=== PATIENT | female | born 1965 | race Caucasian/White ===

== ENCOUNTER 2023-07-20 12:20 | Outpatient (AMB) | payer OTHER, SELFPAY ==
--- NOTE | 2023-07-20 12:34 | A.OFFVIS_ITS ---
Intake Vital Signs 07/20/23 12:35 Height 5 ft 4 in Weight 208 lb BMI 35.7 Intake Visit Reasons: [employer]-B/L knee pain/Right worse Intake Note: Tennille is a 57 year old female who presnets today as a new patient to re- establish care with Dr. briones. She has history of bilateral Arthroscopic surgeries with about 10 years ago. Patient describes her knee pains as sharp in nature. She states that both of her knees will give out several times per day. She has had both cortisone injections and viscosupplementation injections which gave her minimal relief. She has also done physical therapy exercises which aggravated her pain. She was seen by another orthopedic surgeon in [place] recommended total knee replacement surgery. She comes here today for a 2nd opinion regarding her treatment options. Allergies No Known Allergies Allergy (Verified 07/20/23 12:36) [facility] Surgical History (Updated 07/20/23 @ 12:38 by Mel Mendes CMA) H/O arthroscopy of left knee H/O arthroscopy of right knee Social History (Updated 07/20/23 @ 12:36 by Mel Mendes CMA) Patient Tobacco Use Status: Never used Tobacco Current occupational status: employed Current occupation: Home Health Aide Physical Exam Vital Signs: BMI result Body Mass Index 35.7 Const Other: Well-nourished well-developed very friendly female awake alert and oriented x3 in no acute distress Extrem Other: Bilateral lower extremity examination shows good capillary refill, no skin lesions noted, normal sensation light touch Bilateral knee examination shows minimal effusions, mild crepitus with range of motion, tenderness along her medial and lateral joint lines, positive Akila's test, no instability Results Reviewed Results Reviewed: X-rays of the patient's bilateral knee show mild grade 1 diffuse joint space narrowing, no acute bony abnormalities Assessment & Plan Assessment & Plan (1) Right knee pain: Code(s): M25.561 - Pain in right knee Plan: Ms. Burton presents with progressively worsening bilateral knee pains and mechanical symptoms, right greater than left, due to early degenerative joint disease as well as possible tearing of her medial and lateral menisci. I had a lengthy discussion with the patient regarding the treatment options. At this point she has failed continued non operative treatments. The risks and benefits of arthroscopic surgery versus total knee replacement surgery were discussed at length with the patient. Because of the patient's mechanical symptoms I do feel that she would benefit significantly from an arthroscopic procedure. She wishes to hold off on total knee replacement surgery if at all possible. I agree with this plan. Thus, we will schedule her for right knee arthroscopic surgery at our next available date. Surgery will most likely involve right knee diagnostic arthroscopy with partial medial and lateral meniscectomies. She will follow-up as instructed. Feel free to call me at any time should questions regarding her orthopedic management arise. (2) Left knee pain: Code(s): M25.562 - Pain in left knee Plan I spent 22 minutes in reviewing the patient's records and imaging studies, seeing the patient and documenting in the medical record. Orders: Orders XR knee RT 3V Today M25.562 - Pain in left knee XR knee LT 3V Today M25.561 - Pain in right knee Coding Level of Care Code New Pt Level 2 (73608) Diagnoses Right knee pain M25.561 Left knee pain M25.562
[2023-07-20 12:35] VITALS: BMI 35.7
== END 2023-07-20 12:47 | disposition home or self-care (01) ==
PROVIDERS: Visit Provider Orthopaedic Surgery
DX: M25.561 Pain in right knee (principal); M25.562 Pain in left knee
CPT/HCPCS: 99202

== ENCOUNTER 2023-07-20 12:53 | Outpatient (REF) | payer OTHER, SELFPAY ==
--- NOTE | ~2023-07-20 | XR_ITS ---
Examination: Bilateral knee series CLINICAL INFORMATION: Pain in left and right knee COMPARISON: MRI of the right knee June 2022 TECHNIQUE: 3 views of each knee FINDINGS: Right knee: Medial compartment marginal osteophytes without joint space narrowing indicative of mild osteoarthritis unchanged. Lateral compartment: Normal. Patellofemoral compartment: Marginal osteophytes without joint space narrowing indicative of mild osteoarthritis. No effusion. Left knee: Medial compartment marginal osteophytes without joint space narrowing indicative of mild osteoarthritis. Lateral compartment normal. Patellofemoral compartment marginal osteophytes without joint space narrowing indicative of mild osteoarthritis No effusion XR/XR knee RT 3V IMPRESSION: RIGHT KNEE: Mild osteoarthritis. Patellofemoral arthrosis more clearly assessed on prior MRI in 2021. MRI demonstrates mild to moderate osteoarthritis of the patellofemoral compartment LEFT KNEE: Mild osteoarthritis.
--- NOTE | ~2023-07-20 | XR_ITS ---
Examination: Bilateral knee series CLINICAL INFORMATION: Pain in left and right knee COMPARISON: MRI of the right knee June 2022 TECHNIQUE: 3 views of each knee FINDINGS: Right knee: Medial compartment marginal osteophytes without joint space narrowing indicative of mild osteoarthritis unchanged. Lateral compartment: Normal. Patellofemoral compartment: Marginal osteophytes without joint space narrowing indicative of mild osteoarthritis. No effusion. Left knee: Medial compartment marginal osteophytes without joint space narrowing indicative of mild osteoarthritis. Lateral compartment normal. Patellofemoral compartment marginal osteophytes without joint space narrowing indicative of mild osteoarthritis No effusion XR/XR knee LT 3V IMPRESSION: RIGHT KNEE: Mild osteoarthritis. Patellofemoral arthrosis more clearly assessed on prior MRI in 2021. MRI demonstrates mild to moderate osteoarthritis of the patellofemoral compartment LEFT KNEE: Mild osteoarthritis.
== END 2023-07-20 12:54 | disposition home or self-care (01) ==
LOC: HO.HOSX 12:53
PROVIDERS: Visit Provider Orthopaedic Surgery
DX: M25.561 Pain in right knee (principal); M25.562 Pain in left knee
CPT/HCPCS: 73562; 99202

== ENCOUNTER 2023-08-18 07:39 | Day surgery (SDC) | payer OTHER, SELFPAY ==
[2023-08-15 16:37] VITALS: BMI 35.7
[2023-08-16 12:18] VITALS: BMI 35.5
--- NOTE | 2023-08-17 09:53 | HO.ANESPROP2 ---
HPI - Anesthesia Eval Consult details Narrative: 58yo F for Right Knee Arthroscopy, partial medial meniscetomy, possible partial lateral meniscetomy PMFSH Active Problems Active Problems: All Active Problems (Updated 08/16/23 @ 12:17 by Saumya Shepherd RN) Right knee pain (Acute) Left knee pain (Acute) Past Medical History Medical History (Updated 08/16/23 @ 12:17 by Saumya Shepherd RN) Asthma Arthritis Low back pain GERD (gastroesophageal reflux disease) Surgical History Surgical History (Updated 08/16/23 @ 12:16 by Saumya Shepherd RN) H/O arthroscopy of left knee H/O arthroscopy of right knee Social History Social History (Updated 08/16/23 @ 12:18 by Saumya Shepherd RN) Household Members Other:: daughter 17 yr Are you a primary healthcare advisory services manager to a significant other at home: No Do you presently have visiting nurse or other home services: No Patient Tobacco Use Status: Former Tobacco user Quit Date: 1992 Tobacco use type: Cigarette Use of substances other than those prescribed or required for medical reasons: No Have you been hit, kicked, punched, or otherwise hurt by someone within the past year? 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
[2023-08-18] VITALS (7 sets, daily range): BP systolic 100–129; BP diastolic 46–69; PULSE 58–71; RESP 16; TEMP 36.1–37; O2SAT 95–99
[2023-08-18] MEDS: Lactated Ringers 1,000 ML 100 ML IVCONT (08:26)
--- NOTE | 2023-08-18 09:20 | P.CONAN_ITS ---
[facility] Active Problems Active Problems: All Active Problems (Updated 08/16/23 @ 12:17 by Saumya Shepherd RN) Right knee pain (Acute) Left knee pain (Acute) Past Medical History Medical History (Updated 08/16/23 @ 12:17 by Saumya Shepherd RN) Asthma Arthritis Low back pain GERD (gastroesophageal reflux disease) Family History Family history of problems with anesthesia: No Surgical History Surgical History (Updated 08/16/23 @ 12:16 by Saumya Shepherd RN) H/O arthroscopy of left knee H/O arthroscopy of right knee History of Problems with Anesthesia: No Social History Social History (Updated 08/16/23 @ 12:18 by Saumya Shepherd RN) Household Members Other:: daughter 17 yr Are you a primary rn progressive care unit to a significant other at home: No Do you presently have visiting nurse or other home services: No Patient Tobacco Use Status: Former Tobacco user Quit Date: 1992 Tobacco use type: Cigarette Use of substances other than those prescribed or required for medical reasons: No Have you been hit, kicked, punched, or otherwise hurt by someone within the past year? 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 Allergies Allergy/AdvReac Type Severity Reaction Status Date / Time No Known Allergies Allergy Verified 08/16/23 12:21 Active Medications: Current Medications Lactated Ringer's (Lr) 1,000 mls @ 100 mls/hr IVCONT .Q10H VISHNU Last Admin: 08/18/23 08:26 Dose: 100 mls/hr Home Medications Medication Instructions Recorded Confirmed Last Taken Type omeprazole PO PRN Gastric Reflux 08/16/23 Unknown History Exam Height,Weight and Vital Signs: Height 5 ft 4 in Weight 93.894 kg Last Vital Signs Temp 98.6 F 08/18/23 08:19 Pulse 69 08/18/23 08:19 Resp 16 08/18/23 08:19 BP 129/68 08/18/23 08:19 Pulse Ox 97 08/18/23 08:19 O2 Del Method Room Air 08/18/23 08:19 Airway Mallampati Class: II TM Dist: >3cm Neck ROM: Full Assessment and Plan Assessment Anesthesia Assessment: Anesthesia Plan Discussed and Chart Reviewed Final Anesthetic Review Family History of Problems with Anesthesia: No History of Problems with Anesthesia: No NPO: Yes ASA Class: II Final Preanesthetic Review: No Changes in Pt Med Stat, Meds/Allgs Chart Reviewed, Consent Obtained/Reviewed and Anes Risks/Benef Reviewed Patient Risk: Low Procedure Risk: Low Anesthetic Plan Anesthetic Plan: GA Disposition: Standard PACU
--- NOTE | 2023-08-18 11:04 | PM.OP ---
Brief Operative Note Date of Service: 08/18/23 Pre-op diagnosis: Right knee medial meniscus tear, right knee degenerative joint disease Post-op diagnosis: same Procedure: Right knee diagnostic arthroscopy with right knee arthroscopic partial medial meniscectomy, right knee arthroscopic chondroplasty of the undersurface of the patella, trochlear groove and medial femoral condyle Implants: none Surgeon: Red Wylie MD Anesthesia: GLMA Was an Slasher Tender Helper used for this Procedure?: No Estimated blood loss (mL): 10 Pathology: none sent Condition: stable Disposition: PACU
--- NOTE | 2023-08-18 11:05 | P.OP_ITS ---
Operative Note Operative Note Date of Service: 08/18/23 Narrative: After the patient was identified as Tennille Burton and her right knee was initialed by myself they were brought to the operating room where general anesthesia was induced by the anesthesiologist in routine fashion. The patient was given 2 g of IV Ancef for infection prophylaxis. A formal time-out was completed. The patient's right lower extremity was prepped and draped in sterile fashion. Marcaine with epinephrine was injected into the planned incision sites as well as their right knee joint. A # 11 scalpel blade was used to make an anterolateral portal 1 cm proximal to the joint line and 1 cm lateral to the patellar tendon. Blunt trocar technique was used into the suprapatellar pouch with the knee in extension. Diagnostic arthroscopy showed multiple bands of thickened plica which would be excised at the end of the procedure. There were no loose bodies or abnormalities found in either the medial or lateral gutters. There were diffuse grades 3 and 4 degenerative changes of the undersurface of the patella as well as grades 3 and 4 degenerative changes of the trochlear groove. The patient's knee was flexed to 45 degrees and a valgus force was placed upon it. The medial compartment was entered. An anteromedial portal was made 1 cm proximal to the joint line and 1 cm medial to the patellar tendon. Probing of the medial meniscus showed a radial tear of the posterior horn. A partial medial meniscectomy was performed using the arthroscopic shaver. Following the partial meniscectomy the remainder of the meniscus tissue was stable. There were diffuse grade 2 degenerative changes of the medial femoral condyle as well as diffuse grade 1 bone degenerative changes of the medial tibial plateau. The articular surface of the medial femoral condyle was made smooth using the arthroscopic shaver. The patient's knee was then placed into a neutral position. There was no injury to the anterior cruciate ligament. The patient's knee was then placed into the figure of 4 position and the lateral co mpartment was entered. There were minimal degenerative changes of the lateral femoral condyle and lateral tibial plateau. There was no evidence of lateral meniscus tearing. The patient's knee was once again brought into extension and the suprapatellar pouch was entered. The arthroscopic shaver and the ArthroCare Wand were used to excise the thickened bands of plica. The undersurface of the patella and the articular surface of the trochlear groove were made smooth using the arthroscopic shaver. The knee joint was irrigated and then drained. All arthroscopic instruments were removed. The 2 portals were closed with 3-0 nylon interrupted suture. The knee joint was injected with Marcaine. Dry sterile dressing and Garcia bandages were placed over the patient's knee. The patient was woken and expand the operating room. They were transferred to the recovery room in stable condition.
[2023-08-18] MEDS: oxyCODONE HCl Immed Release 5 MG TABLET PO (11:17)
[2023-08-18] MEDS: cefTRIAXone sodium 1 GM in 0.9 % Sodium Chloride 50 ML IV (11:19)
== END 2023-08-18 12:10 | disposition home or self-care (01) ==
PROVIDERS: Visit Provider Orthopaedic Surgery
PROC: (CPT 29870; principal; 2023-08-18 09:50)
DX: S83.241A Other tear of medial meniscus, current injury, right knee, initial encounter (principal); M67.51 Plica syndrome, right knee; M17.11 Unilateral primary osteoarthritis, right knee; X58.XXXA Exposure to other specified factors, initial encounter; Y93.9 Activity, unspecified; Y92.9 Unspecified place or not applicable; Y99.8 Other external cause status; M54.50 Low back pain, unspecified; J45.909 Unspecified asthma, uncomplicated; K21.9 Gastro-esophageal reflux disease without esophagitis; Z79.899 Other long term (current) drug therapy; Z98.890 Other specified postprocedural states; Z87.891 Personal history of nicotine dependence
CPT/HCPCS: 29881; J0171; J0690; J0696; J1100; J1170; J1885; J2250; J2405; J2704; J2795; J3010

== ENCOUNTER → 2023-08-18 07:39 | Outpatient (BNV) | payer OTHER, SELFPAY | PROVIDERS: Visit Provider Orthopaedic Surgery | DX: S83.241A Other tear of medial meniscus, current injury, right knee, initial encounter (principal) | CPT/HCPCS: 29881 ==

== ENCOUNTER 2023-08-31 14:11 | Outpatient (AMB) | payer OTHER, SELFPAY ==
--- NOTE | 2023-08-31 14:34 | A.OFFVIS_ITS ---
Intake Vital Signs 08/31/23 14:35 Height 5 ft 4 in Weight 209 lb BMI 35.9 Intake Visit Reasons: PO-Rt Knee 08/18/23 Intake Note: Tennille a 58 year old female presents today for a post operative right knee on 08/18/23 . Patient reports she is doing well, states her pain is mild with a pain level 3 out of 10. Allergies No Known Allergies Allergy (Verified 08/31/23 14:36) HPI PO-Rt Knee 08/18/23 HPI Details 58-year-old female who returns to the [facility] today for post-op right knee , 08/18/[address] Wylie. She states she has mild pain in her knee and rates the pain as 3 on the scale of 0-10. She is doing well overall and has no other concerns today. [facility] Medical History (Updated 08/31/23 @ 15:45 by Sandra Miller PA-C) Asthma Arthritis Low back pain GERD (gastroesophageal reflux disease) Surgical History H/O arthroscopy of left knee H/O arthroscopy of right knee Social History Household Members Other:: daughter 17 yr Are you a primary insurance healthcare consultant to a significant other at home: No Do you presently have visiting nurse or other home services: No Patient Tobacco Use Status: Former Tobacco user Quit Date: 1992 Tobacco use type: Cigarette Current occupational status: employed Current occupation: Home Health Aide Review of Systems Const All systems reviewed & are unremarkable except as noted in HPI and below Physical Exam Vital Signs: BMI result Body Mass Index 35.9 Const General: cooperative and no acute distress Orientation/consciousness: patient oriented x3 Resp Effort & Inspection: normal respiratory effort and able to speak in complete sentences Cardio Peripheral pulses: Peripheral pulses 2+ throughout Neuro General: patient oriented x3 Extrem Other: Right knee: Incision clean, dry and intact. No erythema or drainage. ROM is 0-95 degrees. Calf supple, nontender. NVI. Results Reviewed Results Reviewed: Brief Operative Note Date of Service: 08/18/23 Pre-op diagnosis: Right knee medial meniscus tear, right knee degenerative joint disease Post-op diagnosis: same Procedure: Right knee diagnostic arthroscopy with right knee arthroscopic partial medial meniscectomy, right knee arthroscopic chondroplasty of the undersurface of the patella, trochlear groove and medial femoral condyle Implants: none Surgeon: Red Wylie MD Assessment & Plan Assessment & Plan (1) S/P right knee arthroscopy: Code(s): Z98.890 - Other specified postprocedural states (2) Right knee pain: Code(s): M25.561 - Pain in right knee Qualifiers: Chronicity: chronic Qualified Code(s): M25.561 - Pain in right knee; G89.29 - Other chronic pain Plan Sutures removed today, steri strips applied. She was given a hanout of home exercises and she will increase activity as tolerated. She is interested in moving forward with the left knee with Dr. Wylie and booking has been made in the office today. She will see us back preoperatively. Patient Instructions: Scribed for Sandra Miller PA-C, by Ishan Curtis medical office coordinator, on 08/31/2023 at 2:30 PM EST. I, Sandra Miller PA-C, have personally reviewed and agree with the information entered by the scribe. Coding Level of Care Code Global (77986) Diagnoses S/P right knee arthroscopy Z98.890 Chronic pain of right knee M25.561; G89.29 Chronicity: chronic
[2023-08-31 14:35] VITALS: BMI 35.9
== END 2023-08-31 15:13 | disposition home or self-care (01) ==
PROVIDERS: Visit Provider Physician Assistant
DX: Z98.890 Other specified postprocedural states (principal); M25.561 Pain in right knee; G89.29 Other chronic pain
CPT/HCPCS: 99024

== ENCOUNTER → 2023-08-31 14:11 | Outpatient (BNVA) | payer OTHER, SELFPAY | PROVIDERS: Visit Provider Physician Assistant | DX: Z47.89 Encounter for other orthopedic aftercare (principal); M25.561 Pain in right knee; G89.29 Other chronic pain; Z98.890 Other specified postprocedural states | CPT/HCPCS: 99212 ==

== ENCOUNTER 2023-09-20 07:35 | Outpatient (AMB) | payer OTHER, SELFPAY ==
--- NOTE | 2023-09-20 07:41 | MHC.OFFVIS ---
Intake Intake Visit Reasons: Pre-Lt Knee Intake Note: Tennille is a 58 year old female who presents with complaints of progressively worsening left knee pain and giving way. The patient did undergo right knee arthroscopic surgery on 08/18/2023. She reports minimal discomfort in her right knee. She describes her left knee pain as sharp and severe in nature. Most of her left knee pain is along the medial and lateral aspects of her knee. She states that her left knee will give out several times per day. She has done physical therapy which aggravated her pain. She has also had multiple cortisone injections. The most recent injection gave her minimal relief. She has tried Tylenol and anti-inflammatory medicines which gave her minimal relief. Allergies No Known Allergies Allergy (Verified 08/31/23 14:36) Medication List - Last Reconciled 09/20/23 by Red Wylie MD [omeprazole PO PRN] oxycodone 5 mg PO Q6H PRN PFSH Medical History (Updated 08/31/23 @ 15:45 by Sandra Millre PA-C) Asthma Arthritis Low back pain GERD (gastroesophageal reflux disease) Surgical History H/O arthroscopy of left knee H/O arthroscopy of right knee Social History Household Members Other:: daughter 17 yr Are you a primary career services representative to a significant other at home: No Do you presently have visiting nurse or other home services: No Patient Tobacco Use Status: Former Tobacco user Quit Date: 1992 Tobacco use type: Cigarette Current occupational status: employed Current occupation: Home Health Aide Physical Exam Const Other: Well-nourished well-developed very friendly female awake alert and oriented x3 in no acute distress Lungs - clear to auscultation bilaterally with symmetric expansion Cardiovascular exam - regular rate and rhythm Abdominal exam - soft nontender nondistended Extrem Other: Bilateral lower extremity examination shows good capillary refill, no skin lesions noted, normal sensation light touch Right knee examination shows that the surgical incisions are well healed, no erythema, minimal discomfort with range of motion, minimal crepitus with range of motion Left knee examination shows a mild effusion, minimal crepitus with range of motion, tenderness along her medial and lateral joint lines, positive Akila's test Results Reviewed Results Reviewed: MRI of the patient's left knee shows mild diffuse degenerative changes as well as tearing of her medial meniscus and possible lateral meniscus tearing, no acute bony abnormalities Assessment & Plan Assessment & Plan (1) Right knee pain: Code(s): M25.561 - Pain in right knee Qualifiers: Chronicity: chronic Qualified Code(s): M25.561 - Pain in right knee; G89.29 - Other chronic pain (2) Left knee pain: Code(s): M25.562 - Pain in left knee Plan Ms. Burton is doing well after undergoing right knee arthroscopic surgery on 08/18/2023. She will home exercise program. The patient does have progressively worsening left knee pain and mechanical symptoms due to early degenerative joint disease as well as tearing of her medial meniscus and possible lateral meniscus tearing. I had a lengthy discussion with the patient regarding the treatment options. The risks and benefits of left knee arthroscopic surgery versus left total knee replacement surgery were discussed at length with the patient. The patient mechanical symptoms I do believe that she will get significant relief from the arthroscopic procedure. The patient wishes to hold off on knee replacement surgery for as long as possible. I agree with this plan. The patient wishes to proceed with the arthroscopic procedure. She was given a prescription for oxycodone for her postoperative pain. The patient will follow-up as instructed. Feel free to call me at any time should questions regarding her orthopedic management arise. I spent 22 minutes in reviewing the patient's records and imaging studies, seeing the patient and documenting in the medical record. Medications: Refilled oxycodone Partial Fill upon patient request. 5 mg PO Q6H PRN 20 tabs 0RF pain Coding Level of Care Code Est Pt Level 2 (16093) Diagnoses Chronic pain of right knee M25.561; G89.29 Chronicity: chronic Left knee pain M25.562
== END 2023-09-20 08:05 | disposition home or self-care (01) ==
PROVIDERS: Visit Provider Orthopaedic Surgery
DX: M17.0 Bilateral primary osteoarthritis of knee (principal); S83.242A Other tear of medial meniscus, current injury, left knee, initial encounter; G89.29 Other chronic pain; M25.561 Pain in right knee
CPT/HCPCS: 99024

== ENCOUNTER → 2023-09-20 07:35 | Outpatient (BNVA) | payer OTHER, SELFPAY | PROVIDERS: Visit Provider Orthopaedic Surgery | DX: M25.561 Pain in right knee (principal); M25.562 Pain in left knee; G89.29 Other chronic pain | CPT/HCPCS: 99212 ==

== ENCOUNTER 2023-10-30 06:00 | Day surgery (SDC) | payer OTHER, SELFPAY ==
[2023-10-30] VITALS (9 sets, daily range): BP systolic 114–134; BP diastolic 62–83; PULSE 61–78; RESP 16–18; TEMP 36.1–36.4; O2SAT 95–100; BMI 37.1
[2023-10-30] MEDS: Lactated Ringers 1,000 ML 100 ML IVCONT (06:44)
--- NOTE | 2023-10-30 07:10 | HO.ANESPROP2 ---
Documented by User: Ita Hou NP 10/16/23 10:33 HPI - Anesthesia Eval Consult details Narrative: 58yo F for Left Knee Arthroscopy, partial medial meniscectomy, 10/30/23 PMFSH Active Problems Active Problems: All Active Problems (Updated 08/31/23 @ 15:45 by Sandra Miller PA-C) S/P right knee arthroscopy (Acute) Right knee pain (Acute) Left knee pain (Acute) Past Medical History Medical History (Updated 08/31/23 @ 15:45 by Sandra Miller PA-C) Asthma Arthritis Low back pain GERD (gastroesophageal reflux disease) Family History Family history of problems with anesthesia: No Surgical History Surgical History H/O arthroscopy of left knee H/O arthroscopy of right knee History of Problems with Anesthesia: No Social History Social History Household Members Other:: daughter 17 yr Are you a primary post acute care nurse practitioner to a significant other at home: No Do you presently have visiting nurse or other home services: No Patient Tobacco Use Status: Former Tobacco user Quit Date: 1992 Tobacco use type: Cigarette Use of substances other than those prescribed or required for medical reasons: No Are you DNR?: No Advance Directives: No Advance Directives Information Provided: Yes Current occupational status: employed 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 Allergies Allergy/AdvReac Type Severity Reaction Status Date / Time No Known Allergies Allergy Verified 08/31/23 14:36 Active Medications: Current Medications Cefazolin Sodium/Dextrose (Ancef) 2 gm in 50 mls @ 100 mls/hr IV PREOP ONE Stop: 10/06/23 06:02 Home Medications Medication Instructions Recorded Confirmed Last Taken Type omeprazole 1 tab PO DAILY PRN Gastric Reflux 08/16/23 10/30/23 Unknown History Assessment and Plan Assessment Anesthesia Assessment: Chart Reviewed Final Anesthetic Review Family History of Problems with Anesthesia: No History of Problems with Anesthesia: No Documented by User: Milady Velasquez DO 10/30/23 07:15 [facility] Past Medical History Medical History (Updated 08/31/23 @ 15:45 by Sandra Miller PA-C) Asthma Arthritis Low back pain GERD (gastroesophageal reflux disease) Family History Family history of problems with anesthesia: No Surgical History Surgical History H/O arthroscopy of left knee H/O arthroscopy of right knee History of Problems with Anesthesia: No Social History Social History Household Members Other:: daughter 17 yr Are you a primary post acute care nurse practitioner to a significant other at home: No Do you presently have visiting nurse or other home services: No Patient Tobacco Use Status: Former Tobacco user Quit Date: 1992 Tobacco use type: Cigarette Use of substances other than those prescribed or required for medical reasons: No Are you DNR?: No Advance Directives: No Advance Directives Information Provided: Yes Current occupational status: employed 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 Allergies Allergy/AdvReac Type Severity Reaction Status Date / Time No Known Allergies Allergy Verified 08/31/23 14:36 Home Medications Medication Instructions Recorded Confirmed Last Taken Type omeprazole 1 tab PO DAILY PRN Gastric Reflux 08/16/23 10/30/23 Unknown History Exam Exam Date and Time: October 30, 2023 0710 Height,Weight and Vital Signs: Height 5 ft 4 in Weight 97.976 kg Vital Signs Temperature 97.0 F 10/30/23 06:20 Pulse Rate 72 10/30/23 06:20 Respiratory Rate 18 10/30/23 06:20 Blood Pressure 134/78 10/30/23 06:20 Pulse Oximetry 95 10/30/23 06:20 Oxygen Delivery Method Room Air 10/30/23 06:20 Temperature 97.0 F 10/30/23 06:20 Pulse Rate 72 10/30/23 06:20 Respiratory Rate 18 10/30/23 06:20 Blood Pressure 134/78 10/30/23 06:20 Pulse Oximetry 95 10/30/23 06:20 Oxygen Delivery Method Room Air 10/30/23 06:20 Airway Mallampati Class: I TM Dist: >3cm Neck ROM: Full Loose/Missing/Broken Teeth: Yes (a few missing teeth but nothing loose or broken per patient) Heart: S1S2 Lungs: CTAB Assessment and Plan Assessment Anesthesia Assessment: Anesthesia Plan Discussed and Chart Reviewed Final Anesthetic Review Family History of Problems with Anesthesia: No History of Problems with Anesthesia: No NPO: Yes ASA Class: II Final Preanesthetic Review: No Changes in Pt Med Stat, Meds/Allgs Chart Reviewed, Consent Obtained/Reviewed and Anes Risks/Benef Reviewed Patient Risk: Low Procedure Risk: Low Anesthetic Plan Anesthetic Plan: GA and Agree w/ Assess. and Plan Disposition: Standard PACU
[2023-10-30] MEDS: fentaNYL citrate/PF 100 MCG/2 ML VIAL 50 MCG IVPUSH (08:54)
[2023-10-30] MEDS: cefTRIAXone sodium 1 GM in 0.9 % Sodium Chloride 50 ML IV (08:55)
--- NOTE | 2023-10-30 09:05 | PM.OP ---
Brief Operative Note Date of Service: 10/30/23 Pre-op diagnosis: Left knee medial meniscus tear, left knee degenerative joint disease Post-op diagnosis: same Procedure: Left knee diagnostic arthroscopy with left knee arthroscopic partial medial meniscectomy, left knee arthroscopic chondroplasty of the medial femoral condyle and the undersurface of the patella Implants: None Surgeon: Red Wylie MD Anesthesia: GLMA Was an Material Reprocessing Associate used for this Procedure?: No Estimated blood loss (mL): 10 Pathology: none sent Condition: stable Disposition: PACU
--- NOTE | 2023-10-30 09:06 | P.OP_ITS ---
Operative Note Operative Note Date of Service: 10/30/23 Narrative: After the patient was identified as Tennille Burton and her left knee was initialed by myself they were brought to the operating room where general anesthesia was induced by the anesthesiologist in routine fashion. The patient was given 2 g of IV Ancef preoperatively for infection prophylaxis. The patient's left lower extremity was prepped and draped in sterile fashion. A formal time-out was completed. Marcaine was injected into the planned incision sites as well as the patient's left knee joint. A #11 scalpel blade was used to make an anterolateral portal 1 cm proximal to the joint line and 1 cm lateral to the pa tellar tendon. Blunt trocar technique was used to enter the suprapatellar pouch with the knee in extension. Diagnostic arthroscopy showed multiple bands of thickened plica which would be excised at the end of the procedure. There were no loose bodies or abnormalities found in either the medial or lateral gutters. The articular surface of the patella showed diffuse grades 1 and 2 degenerative changes. The trochlear groove articular surface showed diffuse grade 1 degenerative changes. The patient's knee was flexed to 45 degrees and a valgus force was placed upon it. The medial compartment was entered. An anteromedial portal was made 1 cm proximal to the joint line and 1 cm medial to the patellar tendon. Probing of the medial meniscus showed a radial tear of the posterior horn. A partial medial meniscectomy was performed using the arthroscopic shaver. Following the partial meniscectomy the remainder of the meniscus tissue was stable. There were diffuse grades 2 and 3 degenerative changes of the medial femoral condyle as well as grade 1 degenerative changes of the medial tibial plateau. The articular surface of the medial femoral condyle was then made smooth using the arthroscopic shaver. The articular surface of the medial tibial plateau was already smooth so no chondroplasty was indicated. The patient's knee was placed into a neutral position. There was no injury to the anterior cruciate ligament. The patient's knee was then placed in the figure of 4 position and the lateral compartment was entered. There was no evidence of lateral meniscus tearing. There were minimal degenerative changes of the lateral femoral condyle and lateral tibial plateau. The patient's knee was once again brought into extension and the suprapatellar pouch was entered. The arth roscopic shaver and the ArthroCare Wand were used to excise the thickened bands of plica. The undersurface of the patella was then made smooth using the arthroscopic shaver. The articular surface of the trochlear groove was already smooth so no chondroplasty was indicated. The knee joint was irrigated and then drained. All arthroscopic instruments were removed. The 2 portals were closed with 3-0 nylon interrupted suture. The knee joint was injected with Marcaine. Dry sterile dressing and Garcia bandages were placed over the patient's knee. The patient was awoken and extubated in the operating room. The patient was transferred to the recovery room in stable condition.
== END 2023-10-30 10:29 | disposition home or self-care (01) ==
PROVIDERS: Visit Provider Orthopaedic Surgery
PROC: (CPT 29870; principal; 2023-10-30 07:30)
DX: S83.242A Other tear of medial meniscus, current injury, left knee, initial encounter (principal); G89.29 Other chronic pain; M17.12 Unilateral primary osteoarthritis, left knee; M67.52 Plica syndrome, left knee; M23.52 Chronic instability of knee, left knee; J45.909 Unspecified asthma, uncomplicated; M54.50 Low back pain, unspecified; K21.9 Gastro-esophageal reflux disease without esophagitis; Z79.899 Other long term (current) drug therapy; Z87.891 Personal history of nicotine dependence
CPT/HCPCS: 29881; J0131; J0171; J0690; J0696; J1100; J1170; J1885; J2250; J2405; J2704; J2795; J3010

== ENCOUNTER → 2023-10-30 06:00 | Outpatient (BNV) | payer OTHER, SELFPAY | PROVIDERS: Visit Provider Orthopaedic Surgery | DX: S83.242A Other tear of medial meniscus, current injury, left knee, initial encounter (principal); M17.12 Unilateral primary osteoarthritis, left knee | CPT/HCPCS: 29881 ==

== ENCOUNTER 2023-11-16 10:00 | Outpatient (AMB) | payer OTHER, SELFPAY ==
--- NOTE | 2023-11-16 10:18 | MHC.OFFVIS ---
Intake Intake Visit Reasons: PO-Lt Knee 10/30/23 Intake Note: Tennille a 58 year old female presents today for a post operative left knee on 10/30/23 . Patient reports she is doing well, states her pain fluctuates however her pain has been tolerable. Allergies No Known Allergies Allergy (Verified 11/16/23 10:22) HPI PO-Lt Knee 10/30/23 HPI Details 58-year-old female who returns to the office today for post-op left knee , 10/30/[address] Wylie. She states she has improvement in her pain however she does c/o pain with extending her knee. She has not yet started with physical therapy for her knee. She is doing well overall and has no other concerns today. [facility] Medical History (Updated 11/16/23 @ 10:20 by Sandra Miller PA-C) Asthma Arthritis Low back pain GERD (gastroesophageal reflux disease) Surgical History H/O arthroscopy of left knee H/O arthroscopy of right knee Social History Household Members Other:: daughter 17 yr Are you a primary career law clerk to a significant other at home: No Do you presently have visiting nurse or other home services: No Patient Tobacco Use Status: Former Tobacco user Quit Date: 1992 Tobacco use type: Cigarette Current occupational status: employed Current occupation: Home Health Aide Review of Systems Const All systems reviewed & are unremarkable except as noted in HPI and below Physical Exam Extrem Other: Left knee: Incision clean, dry and intact. No erythema or joint effusion. ROM is 0-95 degrees Calf supple, nontender. NVI. Results Reviewed Results Reviewed: Brief Operative Note Date of Service: 10/30/23 Pre-op diagnosis: Left knee medial meniscus tear, left knee degenerative joint disease Post-op diagnosis: same Procedure: Left knee diagnostic arthroscopy with left knee arthroscopic partial medial meniscectomy, left knee arthroscopic chondroplasty of the medial femoral condyle and the undersurface of the patella Implants: None Surgeon: Red Wylie MD Assessment & Plan Assessment & Plan (1) Osteoarthritis of left knee: Code(s): M17.12 - Unilateral primary osteoarthritis, left knee (2) Acute meniscal tear of left knee: Code(s): S83.207A - Unspecified tear of unspecified meniscus, current injury, left knee, initial encounter Plan Sutures removed today, steri strips applied. She will begin a course of physical therapy to work on ROM, quad strengthening and gait training. She will avoid deep squatting, pivoting, or twisting for the next 6 weeks and see me back in [address] Wylie, sooner if needed. Orders: Orders PT Evaluation and Treatment Today M17.12 - Unilateral primary osteoarthritis, left knee, S83.207A - Unspecified tear of unspecified meniscus, current injury, left knee, initial encounter Patient Instructions: Scribed for Sandra Miller PA-C, by Ishan Curtis medical authorization specialist, on 11/16/2023 at 10:15 AM EST. I, Sandra Miller PA-C, have personally reviewed and agree with the information entered by the scribe. Coding Level of Care Code Global (47878) Diagnoses Osteoarthritis of left knee M17.12 Acute meniscal tear of left knee S83.207A
== END 2023-11-16 10:24 | disposition home or self-care (01) ==
PROVIDERS: Visit Provider Physician Assistant
DX: M17.12 Unilateral primary osteoarthritis, left knee (principal); S83.207A Unspecified tear of unspecified meniscus, current injury, left knee, initial encounter
CPT/HCPCS: 99024

== ENCOUNTER → 2023-11-16 10:00 | Outpatient (BNVA) | payer OTHER, SELFPAY | PROVIDERS: Visit Provider Physician Assistant | DX: Z47.89 Encounter for other orthopedic aftercare (principal); S83.207D Unspecified tear of unspecified meniscus, current injury, left knee, subsequent encounter; M17.12 Unilateral primary osteoarthritis, left knee | CPT/HCPCS: 99212 ==

== ENCOUNTER 2023-12-14 11:38 | Outpatient (AMB) | payer OTHER, SELFPAY ==
--- NOTE | 2023-12-14 11:46 | A.OFFVIS_ITS ---
Vital Signs 12/14/23 11:49 Height 5 ft 4 in Weight 210 lb BMI 36.0 Intake Visit Reasons: PO-Lt Knee 10/30/23 DR-follow up Intake Note: Tennille is a 58 year old female who presents for her post operative appointment s/p left knee on 10/30/23 DR. Patient reports she is doing ok, she states she doesn't have a lot of strength. She is doing physical therapy and it is going well. The patient also underwent right knee arthroscopic surgery on 08/18/2023. She denies any fevers or chills. She has not yet returned to work. Allergies No Known Allergies Allergy (Verified 12/14/23 11:50) Medication List - Last Reconciled 12/14/23 by Red Wylie MD [omeprazole 1 tab PO DAILY PRN] [facility] Medical History (Updated 11/16/23 @ 10:20 by Sandra Miller PA-C) Asthma Arthritis Low back pain GERD (gastroesophageal reflux disease) Surgical History H/O arthroscopy of left knee H/O arthroscopy of right knee Social History Household Members Other:: daughter 17 yr Are you a primary child care center administrator to a significant other at home: No Do you presently have visiting nurse or other home services: No Patient Tobacco Use Status: Former Tobacco user Quit Date: 1992 Tobacco use type: Cigarette Current occupational status: employed Current occupation: Home Health Aide Physical Exam Vital Signs: BMI result Body Mass Index 36.0 Const Other: Well-nourished well-developed very friendly female awake alert and oriented x3 in no acute distress Extrem Other: Left knee examination shows that the surgical incisions are well healed, no erythema, mild crepitus with range of motion, minimal discomfort with range of motion, no instability Assessment & Plan Assessment & Plan (1) Left knee pain: Code(s): M25.562 - Pain in left knee Category: Medical Plan Ms. Burton continues to do well after undergoing left knee arthroscopic surgery on 10/30/2023 as well as right knee arthroscopic surgery on 08/18/2023. She will continue going to formal physical therapy for now. She will gradually transition to a home exercise program. I will clear her to return to work once her symptoms have improved. She will contact me prior to her follow-up appointment in 2 months should any questions or concerns arise. Coding Level of Care Code Global (34114) Diagnoses Left knee pain M25.562
[2023-12-14 11:49] VITALS: BMI 36.0
== END 2023-12-14 12:05 | disposition home or self-care (01) ==
PROVIDERS: Visit Provider Orthopaedic Surgery
DX: M25.562 Pain in left knee (principal)
CPT/HCPCS: 99024

== ENCOUNTER → 2023-12-14 11:38 | Outpatient (BNVA) | payer OTHER, SELFPAY | PROVIDERS: Visit Provider Orthopaedic Surgery | DX: Z47.89 Encounter for other orthopedic aftercare (principal); M25.562 Pain in left knee; Z98.890 Other specified postprocedural states | CPT/HCPCS: 99212 ==

== ENCOUNTER 2023-12-27 07:00 | Outpatient (RCR) | payer OTHER, SELFPAY ==
--- NOTE | 2023-11-23 12:56 | MHC.PT.EP ---
[facility] [place] Office [place] Office [place] Office [address] Anup Carrillo [address] [phone] F: [phone] F: [phone] F: [phone] F: [phone] Physical Therapy Plan of Care Date of Evaluation: 11/23/23 Date of Surgery: 10/30/23 Diagnosis: S/P Lt KNEE diagnostic arthroscopy with left knee arthroscopic partial medial meniscectomy, left knee arthroscopic chondroplasty of the medial femoral condyle and the undersurface of the patella (DR OSBORNE)->ROM, quad strengthening and gait training Assessment: 58 YO FEMALE REF TO PT S/P Lt KNEE diagnostic arthroscopy with left knee arthroscopic partial medial meniscectomy, left knee arthroscopic chondroplasty of the medial femoral condyle and the undersurface of the patella ON 10/30/23. SHE PRESENTS W/O ASST DEVICES AND A H/O Rt KNEE IN AUG 2023. SHE WORKS FULL-TIME A SENIOR ADVISOR, SHE IS OOW UNTIL JANUARY 05, 2024. OBJECTIVE FINDINGS: TERMINAL KNEE EXT DEFICITS BILATERALLY, DECR LEs STRENGTH/ LUMBOPELVIC STAB, SLS 2 SEC Lt LE, (+) PATELLAR LATERAL DRIFT Lt > Rt KNEE, TIGHT HIP MM, AND Lt ANETEROMED/LAT KNEE / PATELLAR PAIN. SHE HAS DECR LEX TO ALL FUNCT MOB, COMPENSATES W HER UEs.. SHE IS TO AVOID SQUATTING, PIVOTING, LIFTING.. SHE IS MOTIVATED FOR PT TO GUIDE HER IN HER POST-OP COURSE. Frequency and Duration: The patient will be seen 2 x WK x 5 WKS Short Term Goals: *DECR Lt KNEE PAIN AND SWELLING *REDUCE Lt LATERAL PATELLAR TISSUE RESTRICTION *INCR Lt KNEE EXT> FLEX *IMPROVE GAIT MECH AND GRAD INCR LEs USE W SIT <-> STAND *INCR LUMBOPELVIC STAB INITIATE HEP Associate Material Handler Goals: *INDEP HEP AND SELF SX MGMT TECHN *Pt GRAD RESUME REG ADLs , RTW-> IMPROVE LEFI (AT EVAL 54/80) *Pt DEMON EFFICIENT GAIT ON LEVEL GROUND AND STAIRS *WFL STRENGTH Lt LE/ LUMBOPELVIC *SLS Lt LE x 10 SEC Treatment Plan: Modalities to reduce pain, spasms and effusion. Manual therapy to restore motion and function. Therapeutic exercise to improve strength and flexibility. Neuromuscular re-education for posture and balance. Therapeutic activities to return to functional activities of daily living. Electronically signed by: ROGER MCCARTHYPT Please sign and return to therapist. Thank you for your referral.
--- NOTE | 2023-12-27 08:06 | MHC.PT.DC ---
[facility] [place] Office [place] Office [place] Office [address] Anup Carrillo [address] [phone] F: [phone] F: [phone] F: [phone] F: [phone] Physical Therapy Discharge Report Diagnosis: S/P Lt KNEE diagnostic arthroscopy with left knee arthroscopic partial medial meniscectomy, left knee arthroscopic chondroplasty of the medial femoral condyle and the undersurface of the patella (DR OSBORNE)->ROM, quad strengthening and gait training Date of Surgery: 10/30/23 Date of Evaluation: 11/23/23 Date of Discharge: 12/27/23 Treatments to Date: 10 Cancellations to Date: 1 No Shows to Date: 0 Discharge Status: Achieved Goals Improved Function Independent with HEP Discharge Summary: ADEN MET HER PT GOALS AT THIS TIME - HER LEFT KNEE PAIN IS RATED 0/10 . SHE IS INDEP AND COMPLIANT W HEP, DEMON WFL AROM (Lt KNEE 0* TO 135*), WFL FLEXIB, AND INCR STRENGHT IN HER Lt LE. SHE DEMON MORE EFFICIENT GAIT ON LEVEL AND STAIRS AND IS IMPROVING W HER SLS AND SQUAT MECH. WE HAVE ENCOURAGED HER TO INCREASE HER FITNESS WALKING. Electronically signed by: ROGER MCCARTHY,PT Please sign and return to therapist. Thank you for your referral.
== END 2023-12-27 08:06 | disposition home or self-care (01) ==
LOC: HO.PT 07:00
PROVIDERS: Visit Provider Physician Assistant
DX: M17.12 Unilateral primary osteoarthritis, left knee (principal); S83.207D Unspecified tear of unspecified meniscus, current injury, left knee, subsequent encounter
CPT/HCPCS: 97110; 97112; 97162; 97530

== ENCOUNTER 2024-02-15 10:38 | Outpatient (AMB) | payer OTHER, SELFPAY ==
--- NOTE | 2024-02-15 10:44 | A.OFFVIS_ITS ---
Intake Visit Reasons: PO-Lt Knee 10/30/23 DR-follow up Intake Note: Tennille is a 58 year old female who presents to the office today for her follow up Lt Knee 10/30/23 DR. Pt states she is feeling well. She states she has good days and bad days. She states she gets stiffness in her knee after sitting for a longer period of time. Pt states her ROM is better than before. Pt states she has completed P.T. Allergies No Known Allergies Allergy (Verified 02/15/24 10:44) Medication List - Last Reconciled 02/15/24 by Red Wylie MD [omeprazole 1 tab PO DAILY PRN] [facility] Medical History (Updated 11/16/23 @ 10:20 by Sandra Miller PA-C) Asthma Arthritis Low back pain GERD (gastroesophageal reflux disease) Surgical History H/O arthroscopy of left knee H/O arthroscopy of right knee Social History Household Members Other:: daughter 17 yr Are you a primary customer care specialist to a significant other at home: No Do you presently have visiting nurse or other home services: No Patient Tobacco Use Status: Former Tobacco user Tobacco use type: Cigarette Current occupational status: 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 Burton continues to do well after undergoing left knee arthroscopic surgery on 10/30/2023 as well as right knee arthroscopic surgery on 08/18/2023. She will continue activities as tolerated. She will contact me prior to her follow-up appointment in 3 months should any questions or concerns arise. I spent 22 minutes in reviewing the patient's records and imaging studies, seeing the patient and documenting in the medical record. Coding Level of Care Code Est Pt Level 3 (86398) Diagnoses Left knee pain M25.562
== END 2024-02-15 11:10 | disposition home or self-care (01) ==
PROVIDERS: Visit Provider Orthopaedic Surgery
DX: M25.562 Pain in left knee (principal)
CPT/HCPCS: 99213

== ENCOUNTER → 2024-02-15 10:38 | Outpatient (BNVA) | payer OTHER, SELFPAY | PROVIDERS: Visit Provider Orthopaedic Surgery | DX: M25.562 Pain in left knee (principal) | CPT/HCPCS: 99212 ==

== ENCOUNTER 2024-05-16 11:15 | Outpatient (AMB) | payer OTHER, SELFPAY ==
--- NOTE | 2024-05-16 11:20 | A.OFFVIS_ITS ---
Intake Visit Reasons: Bilateral knee pain Intake Note: Tennille is a 58 year old female who presents with complaints of mild intermittent discomfort in both of her knees after undergoing right knee arthroscopic surgery on 08/18/2023 as well as left knee arthroscopic surgery on 10/30/2023. She denies any fevers or chills. She continues with her home exercise program. She denies any locking or giving way. Most of her right knee discomfort is along the anterior aspect of her knee while most of her left knee discomfort is along the medial aspect of her knee. Allergies No Known Allergies Allergy (Verified 05/16/24 11:25) Medication List - Last Reconciled 05/16/24 by Red Wylie MD [omeprazole 1 tab PO DAILY PRN] ON LICENSE OF [facility] Medical History (Updated 11/16/23 @ 10:20 by Sandra Miller PA-C) Asthma Arthritis Low back pain GERD (gastroesophageal reflux disease) Surgical History H/O arthroscopy of left knee H/O arthroscopy of right knee Social History Household Members Other:: daughter 17 yr Are you a primary career and transition teacher to a significant other at home: No Do you presently have visiting nurse or other home services: No Patient Tobacco Use Status: Former Tobacco user Tobacco use type: Cigarette Current occupational status: employed 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 Burton continues to do well after undergoing bilateral knee arthroscopic surgeries. She does have residual discomfort in both of her knees due to degenerative joint disease. I had a lengthy discussion with the patient regarding the treatment options. At this point the patient's symptoms are tolerable to her. She will continue with her activity modifications. She will contact me prior to her follow-up appointment in 3 months should any questions or concerns arise. Feel free to call me at any time should questions regarding her orthopedic management arise. I spent 22 minutes in reviewing the patient's records and imaging studies, seeing the patient and documenting in the medical record. Coding Level of Care Code Est Pt Level 3 (41168) Complex EM visit Add On G2211 Diagnoses Pain in both knees M25.561; M25.562
== END 2024-05-16 11:54 | disposition home or self-care (01) ==
PROVIDERS: Visit Provider Orthopaedic Surgery
DX: M17.0 Bilateral primary osteoarthritis of knee (principal)
CPT/HCPCS: 99213; G2211

== ENCOUNTER → 2024-05-16 11:15 | Outpatient (BNVA) | payer OTHER, SELFPAY | PROVIDERS: Visit Provider Orthopaedic Surgery | DX: M25.561 Pain in right knee (principal); M25.562 Pain in left knee | CPT/HCPCS: 99212 ==

== ENCOUNTER 2024-08-21 11:40 | Outpatient (AMB) | payer OTHER, SELFPAY ==
--- NOTE | 2024-08-21 11:43 | A.OFFVIS_ITS ---
Vital Signs 08/21/24 11:47 Height 5 ft 4 in Weight 210 lb BMI 36.0 Intake Visit Reasons: Bilateral knee pains Intake Note: Tennille is a 59 year old female who presents with complaints of progressively worsening bilateral knee pains. She describes her pains as sharp in nature. She has undergone bilateral knee arthroscopic surgeries in the past. She got only temporary relief from those procedures. She has had cortisone injections in both of her knees as well. The most recent set of cortisone injections gave her minimal relief. She has also had Euflexxa viscosupplementation injections which gave her fairly good relief. She has done physical therapy exercises which aggravated her pain. She has failed the last 3 months of conservative treatment which has consisted of physical therapy exercises, Tylenol and anti- inflammatory medicines. She states that her knee pains are interfering with her activities of daily living and her ability to sleep well through the night. She wishes to hold off on total knee replacement surgery for as long as possible. Allergies No Known Allergies Allergy (Verified 08/21/24 11:47) [facility] Medical History (Updated 08/21/24 @ 12:14 by Red Wylie MD) Asthma Arthritis Low back pain GERD (gastroesophageal reflux disease) Surgical History H/O arthroscopy of left knee H/O arthroscopy of right knee Social History Household Members Other:: daughter 17 yr Are you a primary resident caregiver to a significant other at home: No Do you presently have visiting nurse or other home services: No Patient Tobacco Use Status: Former Tobacco user Tobacco use type: Cigarette Current occupational status: employed Current occupation: Home Health Aide Physical Exam Vital Signs: BMI result Body Mass Index 36.0 Const Other: Well-nourished well-developed very friendly female awake alert and oriented x3 in no acute distress Extrem Other: Bilateral lower extremity examination shows good capillary refill, no skin lesions noted, normal sensation light touch Bilateral knee examination shows minimal effusions, palpable crepitus with range of motion, pain with range of motion, no instability Results Reviewed Results Reviewed: X-rays of the patient's bilateral knees taken previously show joint space narrowing, subchondral sclerosis, no acute bony abnormalities Assessment & Plan Assessment & Plan (1) Osteoarthritis of left knee: Code(s): M17.12 - Unilateral primary osteoarthritis, left knee Category: Medical (2) Osteoarthritis of right knee: Code(s): M17.11 - Unilateral primary osteoarthritis, right knee Category: Medical Plan Ms. Burton presents with bilateral knee pains due to osteoarthritis. I had a lengthy discussion with the patient regarding the treatment options. She wishes to hold off on total knee replacement surgery for as long as possible. I agree with this plan. She has not gotten good relief from cortisone injections in the past. Thus, I will see whether or not her insurance company will cover a series of 3 Euflexxa viscosupplementation injections for both of her knees. I will see her back once the injections are available. She will contact me prior to that time should any questions or concerns arise. I spent 22 minutes in reviewing the patient's records and imaging studies, seeing the patient and documenting in the medical record. Coding Level of Care Code Est Pt Level 3 (19847) Complex EM visit Add On G2211 Diagnoses Osteoarthritis of left knee M17.12 Osteoarthritis of right knee M17.11
[2024-08-21 11:47] VITALS: BMI 36.0
== END 2024-08-21 11:59 | disposition home or self-care (01) ==
PROVIDERS: Visit Provider Orthopaedic Surgery
DX: M17.0 Bilateral primary osteoarthritis of knee (principal)
CPT/HCPCS: 99213; G2211

== ENCOUNTER → 2024-08-21 11:40 | Outpatient (BNVA) | payer OTHER, SELFPAY | PROVIDERS: Visit Provider Orthopaedic Surgery | DX: M17.0 Bilateral primary osteoarthritis of knee (principal) | CPT/HCPCS: 99212 ==

== ENCOUNTER 2024-08-29 09:40 | Outpatient (AMB) | payer OTHER, SELFPAY ==
[2024-08-29 09:43] VITALS: BMI 36.0
--- NOTE | 2024-08-29 09:43 | A.OFFVIS_ITS ---
Vital Signs 08/29/24 09:43 Height 5 ft 4 in Weight 210 lb BMI 36.0 Intake Visit Reasons: Bilateral knee pains Intake Note: Tennille is a 59 year old female who presents with complaints of progressively worsening bilateral knee pains. She describes her pains as sharp in nature. She has had cortisone injections in the past which gave her minimal relief. She wishes to hold off on surgery for as long as possible. She has tried Tylenol and anti-inflammatory medicines which gave her only mild relief. At this point her bilateral knee pains are interfering with her activities of daily living and her ability to sleep well through the night. Allergies No Known Allergies Allergy (Verified 08/29/24 09:43) [facility] Medical History (Updated 08/21/24 @ 12:14 by Red Wylie MD) Asthma Arthritis Low back pain GERD (gastroesophageal reflux disease) Surgical History H/O arthroscopy of left knee H/O arthroscopy of right knee Social History Household Members Other:: daughter 17 yr Are you a primary primary care physician to a significant other at home: No Do you presently have visiting nurse or other home services: No Patient Tobacco Use Status: Former Tobacco user Tobacco use type: Cigarette Current occupational status: employed Current occupation: Home Health Aide Physical Exam Vital Signs: BMI result Body Mass Index 36.0 Const Other: Well-nourished well-developed very friendly female awake alert and oriented x3 in no acute distress Extrem Other: Bilateral lower extremity examination shows good capillary refill, no skin lesions noted, normal sensation light touch Bilateral knee examination shows minimal effusions, palpable crepitus with range motion, pain with range of motion, no instability Office Procedures AMB Joint Injection/Aspiration Joint Injection/Aspiration Primary Site: left knee Prep: site was prepped using aseptic technique Injected: 20 mg of (Euflexxa viscosupplementation) and 1% plain lidocaine Procedure: The patient tolerated the procedure well Coding 13345 - Large joint Procedure code (CPT) selection complete AMB Joint Injection/Aspiration Joint Injection/Aspiration Primary Site: right knee Prep: site was prepped using aseptic technique Injected: 20 mg of (Euflexxa viscosupplementation) and 1% plain lidocaine Procedure: The patient tolerated the procedure well Coding 08542 - Large joint Procedure code (CPT) selection complete Results Reviewed Results Reviewed: X-rays of the patient's bilateral knees taken previously show joint space narrowing, subchondral sclerosis, no acute bony abnormalities Assessment & Plan Assessment & Plan (1) Osteoarthritis of left knee: Code(s): M17.12 - Unilateral primary osteoarthritis, left knee Category: Medical (2) Osteoarthritis of right knee: Code(s): M17.11 - Unilateral primary osteoarthritis, right knee Category: Medical Plan Ms. Burton presents with bilateral knee pains due to osteoarthritis. The risks and benefits of bilateral knee Euflexxa viscosupplementation injections were discussed at length with the patient. The patient wished to proceed. She tolerated the 1st set of injections well. She will continue with her home exercise program. She will follow up next week as scheduled. Feel free to call me at any time should questions regarding her orthopedic management arise. I spent 20 minutes in reviewing the patient's records and imaging studies, seeing the patient and documenting in the medical record. Orders: Orders AMB Joint Injection/Aspiration Today M17.12 - Unilateral primary osteoarthritis, left knee AMB Joint Injection/Aspiration Today M17.11 - Unilateral primary osteoarthritis, right knee Coding Level of Care Code Est Pt Level 3 (44569) Complex EM visit Add On G2211 Diagnoses Osteoarthritis of left knee M17.12 Osteoarthritis of right knee M17.11 CPT Codes Coding - 82347 Large joint: 63781 - Large joint ([id number]) Coding - 07317 Large joint: 31609 - Large joint ([id number])
== END 2024-08-29 10:21 | disposition home or self-care (01) ==
PROVIDERS: Visit Provider Orthopaedic Surgery
DX: M17.0 Bilateral primary osteoarthritis of knee (principal)
CPT/HCPCS: 20610; 99213

== ENCOUNTER → 2024-08-29 09:40 | Outpatient (BNVA) | payer OTHER, SELFPAY | PROVIDERS: Visit Provider Orthopaedic Surgery | DX: M17.0 Bilateral primary osteoarthritis of knee (principal) | CPT/HCPCS: 20610; 99212; J2003; J7323 ==

== ENCOUNTER 2024-09-04 09:27 | Outpatient (AMB) | payer OTHER, SELFPAY ==
--- NOTE | 2024-09-04 09:29 | MHC.OFFVIS ---
Vital Signs 09/04/24 09:31 Height 5 ft 4 in Weight 210 lb BMI 36.0 Intake Visit Reasons: Inj- Bilateral Knee Euflexxa #2 Intake Note: Tennille is a 59 year old female who presents today for her second dose of bilateral knee Euflexxa gel injection. She states that she has gotten mild relief from the 1st set of injections. She continues with her home exercise program. Allergies No Known Allergies Allergy (Verified 09/04/24 09:31) Medication List - Last Reconciled 09/04/24 by Red Wylie MD No Known Home Meds [facility] Medical History (Updated 08/21/24 @ 12:14 by Red Wylie MD) Asthma Arthritis Low back pain GERD (gastroesophageal reflux disease) Surgical History H/O arthroscopy of left knee H/O arthroscopy of right knee Social History Household Members Other:: daughter 17 yr Are you a primary furnace caretaker to a significant other at home: No Do you presently have visiting nurse or other home services: No Patient Tobacco Use Status: Former Tobacco user Tobacco use type: Cigarette Current occupational status: employed Current occupation: Home Health Aide Physical Exam Vital Signs: BMI result Body Mass Index 36.0 Extrem Other: Bilateral knee examination shows minimal effusions, palpable crepitus range of motion, pain with range of motion, no instability Office Procedures AMB Joint Injection/Aspiration Joint Injection/Aspiration Primary Site: right knee Prep: site was prepped using aseptic technique Injected: 20 mg of (Euflexxa viscosupplementation) and 1% plain lidocaine Procedure: The patient tolerated the procedure well Coding 51840 - Large joint Procedure code (CPT) selection complete AMB Joint Injection/Aspiration Joint Injection/Aspiration Primary Site: left knee Prep: site was prepped using aseptic technique Injected: 20 mg of (Euflexxa viscosupplementation) and 1% plain lidocaine Procedure: The patient tolerated the procedure well Coding 38492 - Large joint Procedure code (CPT) selection complete Results Reviewed Results Reviewed: X-rays of the patient's bilateral knees taken previously show joint space narrowing, subchondral sclerosis, no acute bony abnormalities Assessment & Plan Assessment & Plan (1) Osteoarthritis of left knee: Code(s): M17.12 - Unilateral primary osteoarthritis, left knee Category: Medical (2) Osteoarthritis of right knee: Code(s): M17.11 - Unilateral primary osteoarthritis, right knee Category: Medical Plan Ms. Burton presents with bilateral knee pains due to osteoarthritis. The risks and benefits of a 2nd set of Euflexxa viscosupplementation injections were discussed at length with the patient. The patient wishes to proceed. She tolerated the injections well. She will continue with her home exercise program. She will follow up next week as scheduled. Feel free to call me at any time should questions regarding her orthopedic management arise. Orders: Orders AMB Joint Injection/Aspiration 09/04/24 M17.12 - Unilateral primary osteoarthritis, left knee AMB Joint Injection/Aspiration 09/04/24 M17.11 - Unilateral primary osteoarthritis, right knee Coding Level of Care Code Procedure Only Diagnoses Osteoarthritis of left knee M17.12 Osteoarthritis of right knee M17.11 CPT Codes Coding - 57250 Large joint: 12729 - Large joint ([id number]) Coding - 01055 Large joint: 22652 - Large joint ([id number])
[2024-09-04 09:31] VITALS: BMI 36.0
--- OUTSIDE RECORDS SUMMARY | 2024-09-04 10:57 | XMS_ITS | Encounter Summary ---
Author Organization [facility] Address [address] [place] [address] Care Team Providers Care Mud Engineer Name Role Phone Millie Castellano MD Primary Care Provider Reason for Visit * Reason Onset Date Comments Wheezing 08/12/2024 Encounter Details Date Type Department Care Team ([facility] st Contact Info) Description 08/12/2024 Telephone Adult Medicine [facility] [address] [place] [phone] Millie Castellano MD [address] [place] [address] Wheezing Social History Tobacco Use Types Packs/Day Years Used Date Smoking Tobacco: Former Cigarettes Q uit: 04/12/1993 Smokeless Tobacco: Never Alcohol Use Standard Drinks/Week Comments Yes 0 (1 standard drink = 0.6 oz pur e alcohol) Sex and Gender Information Value Date Recorded Sex Assigned at Not on file Gender Identity Not on file Sexual Orientation Not on file documented as of this encounter Progress Notes * Raciel Mendez RN - 08/12/2024 1:55 PM EST Pt states that she is having a flair up of her asthma and is wheezing , appointment scheduled * Cheryl Barrettap - 08/12/2024 1:51 PM EST Patient call requires triage: Symptoms patient is presenting: wheezing pt has asthma How long has patient had these symptoms?: New years rosa For ALL patients calling to schedule any appointment (routine, sick visit, follow up, consult, etc.) in the outpatient setting please ask the following questions: Do you have fever of higher than 101, sore throat with difficulty swallowing or severe shortness ofbreath? no If YES to any of these above symptoms, send a message to triage and do not book. Red dot. If no, an audio or video visit should be booked. Have you had close contact with someone with Coronavirus in the last 14 days? no Have you traveled abroad? no Have you traveled recently to another state outside of [place], [place], [place], [place], [place], [place], [place]? no o If yes, did you quarantine for 14 days or have a negative covid test? no If yes to any of the above, patient is not to be scheduled in office until after 14 day quarantine or negative covid test. If pain or injury related was it due to an accident at work or from a motor vehicle accident? If yes, date of accident/Injury: No If yes, gather 3rd alliance party insurance information Third Green Party Information: PCP: iMllie Castellano MD Payor: [facility] [employer] / Plan: [facility] [employer] DIRECT / Product Type: *No Product type* / documented in this encounter Plan of Treatment Upcoming Encounters Date Type Department Care Team (Late st Contact Info) Description 10/18/2024 12:30 PM EDT Office Visit Adult Medicine - [place] [address] [place] [address] Manolo Schilling PA [address] [place] [address] documented as of this encounter Visit Diagnoses Not on filedocumented in this encounter Additional Health Concerns Assessment Noted Time PHQ-9 Depression Total Score: 0 07/16/20 24 1:32 PM EST documented as of this encounter Care Teams Mud Engineer Relationship Specialty Start Date End Date Millie Castellano MD [address] [address] PCP - General Internal Medicine 11/25/21 documented as of this encounter
--- OUTSIDE RECORDS SUMMARY | 2024-09-04 10:57 | XMS_ITS | Clinical Summary ---
Author Organization [facility] [address] [facility] Address [address] [place] [address] Phone Care Team Providers Care Tech Brazer Tester Name Role Phone Millie Castellano MD Primary Care Provider Allergies No known active allergies Medications Medication Sig Dispensed Refills Start Date End Date Status albuterol HFA (PROAIR HFA ; PROVENTIL HFA ; VENTOLIN HFA) 90 mcg/actuation inhaler Inhale 2 puffs by mouth every 6 (six) hours if needed for wheezing. 6.7 g 2 08/12/2024 Active albuterol HFA (PROAIR HFA ; PROVENTIL HFA ; VENTOLIN HFA) 90 mcg/actuation inhaler Inhale 2 Puffs into the lungs every 4 hours as needed for Cough or Wheezing. 03/25/2021 08/12/2024 Discontinued( Therapy completed) Active Problems Problem Noted Date Diagnosed Date Shingles 12/09/2022 GERD (gastroesophageal reflux disease) Moderate persistent asthma 05/23/2018 Obesity (BMI 30.0-34.9) 04/12/2018 Pure hypercholesterolemia 01/20/2014 Encounters Date Type Department Care Team Description 08/12/2024 2:45 PM EST Office Visit Adult Medicine [facility] [address] [place] [address] Millie Castellano MD Mild intermittent asthma without complication (Primary Dx) 08/12/2024 Telephone Adult [facility] [address] [place] [address] Millie Castellano MD Wheezing 07/16/2024 1:30 PM EST Office Visit Adult Medicine [address] [phone] Manolo Schilling PA Routine general medical examination at a health care facility (Primary Dx); Class 2 obesity without serious comorbidity with body mass index (BMI) of 36.0 to 36.9 in adult, unspecified obesity type; Need for Tdap vaccination from Last 3 Months Immunizations Name Administration Dates Next Due Influenza trivalent, MDCK, 0 .5mL, preservative free (Flucelvax) 6mo and older 07/16/2024 [employer] SARS-CoV-2 COVID -19, vector-nr, rS-Ad26, preservative free 12/03/2020 Pneumococcal conjugate 13 va lent (Prevnar 13, PCV13) 2mo and older 03/25/2021 Tdap Tetanus diptheria acell ular pertussis (Boostrix; Adacel) 7yo and older 07/16/2024,01/20/2014 Surgical History Surgery Date Site/Laterality Comments KNEE SURGERY 2013 Bilateral PROCEDURE: HISTORICAL KNEE SURGERY; COMMENT: Arthroscopy Medical History Medical History Date Comments Pure hypercholesterolemia 01/20/2014 DX:Pur e hypercholesterolemia GERD (gastroesophageal reflux disease) 05/06/2021 DX:GERD (gastroesophageal reflux disease) Family History Medical History Relation Name Comments No Known Problems Brother 1 No Known Problems Brother 2 No Known Problems Daughter 1 No Known Problems Daughter 2 No Known Problems Daughter 3 Mental illness Father alzheimers Hypertension Mother Thyroid disease Mother Hypertension Sister 1 Hypertension Sister 2 Breast cancer Neg Hx Relation Name Status Comments Brother 1 Alive Brother 2 Alive Daughter 1 Alive Daughter 2 Alive Daughter 3 Alive Father Mother Alive Sister 1 Alive Sister 2 Alive Sister 3 Alive Social History Tobacco Use Types Packs/Day Years Used Date Smoking Tobacco: Former Cigarettes Q uit: 04/12/1993 Smokeless Tobacco: Never Tobacco Cessation:Counseling Given: Not Answered Alcohol Use Standard Drinks/Week Comments Yes 0 (1 standard drink = 0.6 oz pur e alcohol) Sex and Gender Information Value Date Recorded Sex Assigned at Not on file Gender Identity Not on file Sexual Orientation Not on file Obstetrics History Last Filed Vital Signs Vital Sign Reading Time Taken Comments Blood Pressure 136/65 08/12/2024 2:58 PM EST Pulse 66 08/12/2024 2:58 PM EST Temperature 36.3 ??C (97.3 ??F) 08/12/2024 2:58 PM ES T Respiratory Rate 16 08/12/2024 2:58 PM EST Oxygen Saturation - - Inhaled Oxygen Concentration - - Weight 95.4 kg (210 lb 6.4 oz) 08/12/2024 2:58 P M EST Height 162.4 cm (5' 3.94 ) 08/12/2024 2:58 PM ES T Body Mass Index 36.19 08/12/2024 2:58 PM EST Plan of Treatment Upcoming Encounters Date Type Department Care Team (Late st Contact Info) Description 10/18/2024 12:30 PM EDT Office Visit Adult Medicine - [address] [phone] Manolo Schilling PA [address] [place] [address] Health Maintenance Due Date Last Done Comments Breast Cancer Screening 1967 Hepatitis B Vaccines (1 of 3 - 19+ 3-dose series) 1986 Cervical Cancer Screening: P ap Smear 03/18/2017 03/18/2014, 03/18/2014 Zoster Vaccines (1 of 2) 2017 Pneumococcal Vaccine: Pediatrics (0 to 5 Years) and At-Risk Patients (6 to 64 Years) (2 of 2 - PPSV23 or PCV20) 05/20/2021 03/25/2021 HIV Screening 07/06/2022 Social Influencers of Health Screening 07/06/2022 COVID-19 Vaccine (4 - 2023-2 5 season) 2024 08/08/2022, 07/17/2021, 12/03/2020 Depression Screening 07/16/2025 07/16/2024 Cholesterol Screening (Lipid Panel) 12/10/2027 12/09/2022 Colorectal Cancer Screening: Colonoscopy 07/23/2031 07/23/2021 DTaP,Tdap,and Td Vaccines (3 - Td or Tdap) 07/16/2034 07/16/2024, 01/20/2014 Hepatitis C Screening Completed 03/30/2021 Influenza Vaccine Completed 07/16/2024, 08/08/2022 HIB Vaccines Aged Out No longer eligi ble based on patient's age to complete this topic HPV Vaccines Aged Out No longer eligi ble based on patient's age to complete this topic Hepatitis A Vaccines Aged Out No long er eligible based on patient's age to complete this topic IPV Vaccines Aged Out No longer eligi ble based on patient's age to complete this topic MMR Vaccines Aged Out No longer eligi ble based on patient's age to complete this topic Meningococcal ACWY Vaccine Aged Out N o longer eligible based on patient's age to complete this topic RSV Immunization Patients Under 20 months Aged Out No longer eligible b ased on patient's age to complete this topic Varicella Vaccines Aged Out No longer eligible based on patient's age to complete this topic Procedures Procedure Name Priority Date/Time Associated Diagnosis Comments LIPID PANEL Routine 12/09/2022 COLONOSCOPY Routine 07/23/2021 HEPATITIS C SCREENING Routine 03/30/2021 HPV Routine 03/18/2014 from Last 3 Months or Most Recently Relevant to Health Maintenance Results * (ABNORMAL) Lipid panel (12/09/2022) [facility] LDL/HDL Ratio 3 0 - 4 Triglycerides 90 0 - 150 mg/dL Cholesterol 237(A) 0 - 200 mg/dL HDL 73 40 mg/dL LDL Cholesterol 146(A) 0 - 100 mg/dL Blood Venous blood specimen / Unknown Historical Provider LAB BLOOD ORDERAB LES * Colonoscopy (07/23/2021) [facility] Colonoscopy No Interpretation , Abstracted Anatomical Region Laterality Modality Other [facility] * Hepatitis C Screening (03/30/2021) [facility] Hepatitis C Screening Abstracted Historical Provider [facility] * Cervical Cancer Screening: HPV (03/18/2014) [facility] Cervical Cancer Screening: HPV Negative, Abstracted Historical Provider MD GIOVANNI Narvaez from Last 3 Months or Most Recently Relevant to Health Maintenance Care Teams Tech Brazer Tester Relationship Specialty Start Date End Date Millie Castellano MD [address] [place] [address] [phone] PCP - General Internal Medicine 11/25/21
--- OUTSIDE RECORDS SUMMARY | 2024-09-04 10:57 | XMS_ITS | Encounter Summary ---
Author Organization [facility] Address [address] [place] [address] Care Team Providers Care Clock Maker Name Role Phone Unavailable Primary Care Provider Unavailabl e Encounter Details Date Type Department Care Team (Latest Contact Info) Description 08/02/2019 Abstract [facility] CONVERSIONS Dental, Provider, DDS Social History Tobacco Use Types Packs/Day Years Used Date Smoking Tobacco: Never Assessed Comments Unknown Sex and Gender Information Value Date Recorded Sex Assigned at Not on file Legal Sex Female 5:35 PM EDT Gender Identity Not on file Sexual Orientation Not on file documented as of this encounter Plan of Treatment Not on file documented as of this encounter Visit Diagnoses Not on filedocumented in this encounter
--- OUTSIDE RECORDS SUMMARY | 2024-09-04 10:57 | XMS_ITS | Clinical Summary ---
Author Organization [employer] Address [address] [facility] [address] [place] [address] Care Team Providers Care Mold Inspector Name Role Phone Unavailable Primary Care Provider Unavailabl e Social History Tobacco Use Types Packs/Day Years Used Date Smoking Tobacco: Never Assessed Comments Unknown Sex and Gender Information Value Date Recorded Sex Assigned at Not on file Legal Sex Female 5:35 PM EDT Gender Identity Not on file Sexual Orientation Not on file Plan of Treatment Health Maintenance Due Date Last Done Comments CT Colonography 1967 Colonoscopy 1967 Colorectal Cancer Screening 1967 Depression Screening 1967 FIT DNA/Cologuard 1967 FIT 1967 FOBT 1967 Sigmoidoscopy 1967 Alcohol/Substance Use Screening 1979 Tobacco Screening 1979 DTaP/Tdap/Td Vaccines (1 - Tdap) 1986 Hepatitis B Vaccines (1 of 3 - 19+ 3-dose series) 1986 Pap Smear 1988 Cervical Cancer Screening 1997 HPV/Cotest 1997 Mammogram 2007 Zoster Vaccines (1 of 2) 2017 COVID-19 Vaccine (2023-2 5 season) 2024 Influenza Vaccine (#1) 2024 RSV Patients and Pa tients Aged 60 years or older (1 - 1-dose 75+ series) 2042 HIB Vaccines Aged Out No longer eligi [...] patient's age to complete this topic Meningococcal Vaccine Aged Out No neda hayder eligible based on patient's age to complete this topic Pneumococcal Vaccine: Pediat rics (0 to 5 Years) and At-Risk Patients (6 to 49) Years) Aged Out No longer eligible b ased on patient's age to complete this topic RSV under 20 months Aged Out No longe r eligible based on patient's age to complete this topic Rotavirus Vaccines Aged Out No longer eligible based on patient's age to complete this topic
--- OUTSIDE RECORDS SUMMARY | 2024-09-04 10:57 | XMS_ITS | Encounter Summary ---
Author Organization [facility] Address [address] [place] [address] Care Team Providers Care Floor Layer Apprentice Name Role Phone Millie Castellano MD Primary Care Provider Reason for Visit * Reason Comments Asthma X 1 weel Encounter Details Date Type Department Care Team ([facility] st Contact Info) Description 08/12/2024 2:45 PM EST Office Visit Adult Medicine - [place] [address] [place] [address] Millie Castellano MD [address] [place] [address] Mild intermittent asthma without complication (Primary Dx) Social History Tobacco Use Types Packs/Day Years [...] on file documented as of this encounter Last Filed Vital Signs Vital Sign Reading [...] Mass Index 36.19 08/12/2024 2:58 PM EST documented in this encounter Ordered Prescriptions Prescription Sig Dispensed Refills Start Date End Da te albuterol HFA (PROAIR HFA ; PROVENTIL HFA ; VENTOLIN HFA) 90 mcg/actuation inhaler Inhale 2 puffs by mouth every 6 (six) hours if needed for wheezing. 6.7 g 2 08/12/2024 documented in this encounter Progress Notes * Millie Castellano MD - 08/12/2024 2:45 PM EST CHIEF COMPLAINT: Asthma (X 1 weel) IDENTIFIER: Tennille Burton is a 59 y.o. old female. HPI: I am seeing Tennille today for the first time. C/o wheezing x years. Hx of asthma. Has been worse since . Has been having some chest tightness x 1wk- at rest and with activity. Working as a home health aide. ROS: GENERAL: No malaise, significant weight loss or fever HEENT: No changes in hearing or vision, nose bleeds or other nasal problems NECK: No lumps, goiter, pain or significant neck swelling CARDIOVASCULAR: No leg swelling or palpitations GI: No constipation/diarrhea. No abdominal discomfort, blood in stools or black stools The remainder of review of systems is noncontributory. PAST MEDICAL HISTORY: Patient Active Problem List Diagnosis Date Noted Shingles 12/09/2022 GERD (gastroesophageal reflux disease) 05/06/2021 Moderate persistent asthma 05/23/2018 Obesity (BMI 30.0-34.9) 04/12/2018 Pure hypercholesterolemia 01/20/2014 SOCIAL HISTORY: Social History Tobacco Use Smoking status: Former Current packs/day: 0.00 Types: Cigarettes Quit date: 04/12/1993 Years since quittin.3 Smokeless tobacco: Never Substance Use Topics Alcohol use: Yes FAMILY HISTORY: Family Status Relation Name Status Mother Alive Father Sister Alive Sister Alive Sister Alive Brother Alive Brother Alive Daughter Alive Daughter Alive Daughter Alive Neg Hx (Not Specified) No partnership data on file Family History Problem Relation Name Age of Onset Hypertension Mother Thyroid disease Mother Mental illness Father alzheimers Hypertension Sister Hypertension Sister No Known Problems Brother No Known Problems Brother No Known Problems Daughter No Known Problems Daughter No Known Problems Daughter Breast cancer Neg Hx ACTIVE MEDICATIONS: Outpatient Medications Marked as Taking for the 08/12/24 encounter (Office Visit) with Millie Castellano MD Medication Sig Dispense Refill albuterol HFA (PROAIR HFA ; PROVENTIL HFA ; VENTOLIN HFA) 90 mcg/actuation inhaler Inhale 2 puffs by mouth every 6 (six) hours if needed for wheezing. 6.7 g 2 ALLERGIES: Patient has no known allergies. PHYSICAL EXAM: Blood pressure 136/65, pulse 66, temperature 36.3 ??C (97.3 ??F), temperature source Temporal, resp. rate 16, height 1.624 m (63.94 ), weight 95.4 kg (210 lb 6.4 oz). Body mass index is 36.19 kg/m??.BMI is greater than 25.0 (above the normal range) - see Plan APPEARANCE: Alert and in no acute distress HEART: RRR with normal S1 and S2, no murmurs LUNG: Clear to auscultation bilaterally. No accessory muscle use. No wheeze or crackles GAIT: Normal IMPRESSION: 1. Mild intermittent asthma without complication PLAN: Refilled albuterol. Not having any exacerbation. Fu with manolo in jul for physical. No orders of the defined types were placed in this encounter. Millie Castellano MD on 08/12/2024 at 3:26 PM EST documented in this encounter Plan of Treatment Upcoming Encounters Date Type Department Care Team (Late st Contact Info) Description 10/18/2024 12:30 PM EDT Office Visit Adult Medicine - [address] [phone] Manolo Schilling PA [address] [place] [address] documented as of this encounter Visit Diagnoses Diagnosis Mild intermittent asthma without complication- Primary documented in this encounter Discontinued Medications Medication Sig Discontinue Reason Start Date End Da te albuterol HFA (PROAIR HFA ; PROVENTIL HFA ; VENTOLIN HFA) 90 mcg/actuation inhaler Inhale 2 Puffs into the lungs every 4 hours as needed for Cough or Wheezing. Therapy completed 03/25/2021 08/12/2024 documented as of this encounter Additional Health Concerns Assessment Noted Time PHQ-9 Depression Total Score: 0 07/16/20 24 1:32 PM EST documented as of this encounter Care Teams Floor Layer Apprentice Relationship Specialty Start Date End Date Millie Castellano MD [address] [place] [address] PCP - General Internal Medicine 11/25/21 documented as of this encounter
--- OUTSIDE RECORDS SUMMARY | 2024-09-04 10:57 | XMS_ITS | Encounter Summary ---
Author Organization [facility] Address [address] [facility] 7 [place] [address] Care Team Providers Care Hobbing Machine Operator Name Role Phone Unavailable Primary Care Provider Unavailabl e Encounter Details Date Type Department Care Team (Latest Contact Info) Description 12/17/2020 [facility] Dental, Provider, DDS Social [...]
--- OUTSIDE RECORDS SUMMARY | 2024-09-04 10:57 | XMS_ITS | Encounter Summary ---
Author Organization [facility] Address [address] [facility] [address] [place] [address] Care Team Providers Care Cash Processing Specialist Name Role Phone Unavailable Primary Care Provider Unavailabl e Encounter Details Date Type Department Care Team (Latest Contact Info) Description 06/18/2020 [facility] Dental, Provider, DDS Social [...]
--- OUTSIDE RECORDS SUMMARY | 2024-09-04 10:57 | XMS_ITS | Encounter Summary ---
Author Organization [facility] Address [address] [facility] 7 [place] [address] Care Team Providers Care Electrical Maintenance Mechanic Name Role Phone Unavailable Primary Care Provider Unavailabl e Encounter Details Date Type Department Care Team (Latest Contact Info) Description 01/25/2019 Abstract [facility] Dental, Provider, DDS Social [...]
== END 2024-09-04 10:04 | disposition home or self-care (01) ==
PROVIDERS: Visit Provider Orthopaedic Surgery
DX: M17.0 Bilateral primary osteoarthritis of knee (principal)
CPT/HCPCS: 20610

== ENCOUNTER → 2024-09-04 09:27 | Outpatient (BNVA) | payer OTHER, SELFPAY | PROVIDERS: Visit Provider Orthopaedic Surgery | DX: M17.0 Bilateral primary osteoarthritis of knee (principal) | CPT/HCPCS: 20610; J2003; J7323 ==

== ENCOUNTER → 2024-09-12 07:53 | Outpatient (BNVA) | payer OTHER, SELFPAY | PROVIDERS: Visit Provider Orthopaedic Surgery | DX: M17.0 Bilateral primary osteoarthritis of knee (principal) | CPT/HCPCS: 20610; J2003; J7323 ==

== ENCOUNTER → 2024-09-12 07:53 | Outpatient (AMB) | payer OTHER, SELFPAY ==
--- OUTSIDE RECORDS SUMMARY | 2024-09-12 07:55 | XMS_ITS | Encounter Summary ---
Author Organization [facility] Address [address] [facility] 7 [place] [address] Care Team Providers Care Trim Line Worker Name Role Phone Unavailable Primary Care Provider [...]
--- OUTSIDE RECORDS SUMMARY | 2024-09-12 07:55 | XMS_ITS | Clinical Summary ---
Author Organization [facility] Address [address] [facility] 7[address] [place] [address] Care Team Providers Care Industrial Sweeper Cleaner Name Role Phone Unavailable Primary Care Provider [...] Cancer Screening 1997 HPV/Cotest 1997 Mammogram 2007 Pneumococcal Vaccine: 50+ Ye ars (1 of 1 - PCV) 2017 Zoster Vaccines (1 of 2) 2017 COVID-19 Vaccine ( - 2023-2 5 season) 2024 Influenza Vaccine (#1) 2024 [...]
--- OUTSIDE RECORDS SUMMARY | 2024-09-12 07:55 | XMS_ITS | Encounter Summary ---
Author Organization [facility] Address [address] [facility] 7 [place] [address] Care Team Providers Care Guidance Consultant Name Role Phone Unavailable Primary Care Provider [...]
--- OUTSIDE RECORDS SUMMARY | 2024-09-12 07:55 | XMS_ITS | Clinical Summary ---
Author Organization [facility] Address [address] [place] [address] Phone Care Team Providers Care Spindle Tester Name Role Phone Millie Castellano MD Primary Care Provider Allergies No known active allergies Medications Medication Sig Dispensed Refills Start Date End Date Status albuterol HFA (PROAIR HFA ; PROVENTIL HFA ; VENTOLIN HFA) 90 mcg/actuation inhaler Inhale 2 puffs by mouth every 6 (six) hours if needed for wheezing. 6.7 g 2 08/12/2024 Active Active Problems Problem Noted Date Diagnosed Date Shingles 12/09/2022 GERD (gastroesophageal reflux disease) Moderate persistent asthma 05/23/2018 Obesity (BMI 30.0-34.9) 04/12/2018 Pure hypercholesterolemia 01/20/2014 Encounters Date Type Department Care Team Description 08/12/2024 2:45 PM EST Office Visit Adult [facility] [address] [place] [address] Millie Castellano MD Mild intermittent asthma without complication (Primary Dx) 08/12/2024 Telephone Adult [facility] [address] [place] [address] Millie aCstellano MD Wheezing 07/16/2024 1:30 PM EST Office Visit Adult [facility] [address] [place] [address] Manolo Schilling PA Routine general medical examination at a health care facility (Primary Dx); Class 2 obesity without serious comorbidity with body mass index (BMI) of 36.0 to 36.9 in adult, unspecified obesity type; Need for Tdap vaccination from Last 3 Months Immunizations Name Administration Dates Next Due Influenza trivalent, MDCK, 0 .5mL, preservative free (Flucelvax) 6mo and older 07/16/2024 [facility] SARS-CoV-2 COVID -19, vector-nr, rS-Ad26, preservative free [...] PM EDT Office Visit Adult Medicine - [place] [address] [place] [address] Manolo Schilling PA [address] [place] [address] Health Maintenance Due Date Last Done Comments [...] Maintenance Results * (ABNORMAL) Lipid panel (12/09/2022) [facility] LDL/HDL Ratio 3 0 - 4 Triglycerides 90 0 - 150 mg/dL Cholesterol 237(A) 0 - 200 mg/dL HDL 73 40 mg/dL LDL Cholesterol 146(A) 0 - 100 mg/dL Blood Venous blood specimen / Unknown Historical Provider LAB BLOOD ORDERAB LES * Colonoscopy (07/23/2021) Pathologist [facility] Colonoscopy No Interpretation , Abstracted Anatomical Region Laterality Modality Other Historical Provider MD GIOVANNI HILL E * Hepatitis C Screening (03/30/2021) [facility] Hepatitis C Screening Abstracted Historical Provider MD GIOVANNI HILL E * Cervical Cancer Screening: HPV (03/18/2014) [facility] Cervical Cancer Screening: HPV Negative, Abstracted Historical Provider MD GIOVANNI Narvaez from Last 3 Months or Most Recently Relevant to Health Maintenance Care Teams Spindle Tester Relationship Specialty Start Date End Date Millie Castellano MD [address] [facility] [address] [place] [address] PCP - General Internal Medicine 11/25/21
--- OUTSIDE RECORDS SUMMARY | 2024-09-12 07:55 | XMS_ITS | Encounter Summary ---
Author Organization [facility] Address [address] [facility] 7 [place] [address] Care Team Providers Care Machine Assembler Name Role Phone Unavailable Primary Care Provider [...]
--- OUTSIDE RECORDS SUMMARY | 2024-09-12 07:55 | XMS_ITS | Encounter Summary ---
Author Organization [facility] Address [address] [facility] [address] [place] [address] Care Team Providers Care Scrap Collector Name Role Phone Unavailable Primary Care Provider [...]
--- NOTE | 2024-09-12 08:08 | A.OFFVIS_ITS ---
Vital Signs 09/12/24 08:09 Height 5 ft 4 in Weight 210 lb BMI 36.0 Intake Visit Reasons: Inj- Bilateral Knee Euflexxa #3 Intake Note: Tennille is a 59 year old female who presents today for her 3rd dose of bilateral knee Euflexxa gel injection. She states that she has gotten mild relief from the 1st 2 injections. She continues with her home exercise program. Allergies No Known Allergies Allergy (Verified 09/12/24 08:11) Medication List - Last Reconciled 09/12/24 by Red Wylie MD No Known Home Meds [facility] Medical History (Updated 08/21/24 @ 12:14 by Red Wylie MD) Asthma Arthritis Low back pain GERD (gastroesophageal reflux disease) Surgical History H/O arthroscopy of left knee H/O arthroscopy of right knee Social History Household Members Other:: daughter 17 yr Are you a primary in home caregiver to a significant other at home: No Do you presently have visiting nurse or other home services: No Patient Tobacco Use Status: Former Tobacco user Tobacco use type: Cigarette Current occupational status: employed Current occupation: Home Health Aide Physical Exam Vital Signs: BMI result Body Mass Index 36.0 Extrem Other: Bilateral knee examination shows minimal effusions, palpable crepitus with range of motion, pain with range of motion, no instability Office Procedures AMB Joint Injection/Aspiration Joint Injection/Aspiration Primary Site: left knee Prep: site was prepped using aseptic technique Injected: 20 mg of (Euflexxa viscosupplementation) and 1% plain lidocaine Procedure: The patient tolerated the procedure well Coding 02541 - Large joint Procedure code (CPT) selection complete AMB Joint Injection/Aspiration Joint Injection/Aspiration Primary Site: right knee Prep: site was prepped using aseptic technique Injected: 20 mg of (Euflexxa viscosupplementation) and 1% plain lidocaine Procedure: The patient tolerated the procedure well Coding 30047 - Large joint Procedure code (CPT) selection complete Assessment & Plan Assessment & Plan (1) Osteoarthritis of left knee: Code(s): M17.12 - Unilateral primary osteoarthritis, left knee Category: Medical (2) Osteoarthritis of right knee: Code(s): M17.11 - Unilateral primary osteoarthritis, right knee Category: Medical Plan Ms. Burton presents with bilateral knee pains due to osteoarthritis. The risks and benefits of a 3rd set of Euflexxa viscosupplementation injections were discussed at length with the patient. The patient wished to proceed. She tolerated the injections well. She will continue with her home exercise program. She will contact me prior to her follow-up appointment in 3 months should any questions or concerns arise. Orders: Orders AMB Joint Injection/Aspiration Today M17.11 - Unilateral primary osteoarthritis, right knee AMB Joint Injection/Aspiration Today M17.12 - Unilateral primary osteoarthritis, left knee Coding Level of Care Code Procedure Only Diagnoses Osteoarthritis of left knee M17.12 Osteoarthritis of right knee M17.11 CPT Codes Coding - 59658 Large joint: 16215 - Large joint ([id number]) Coding - 82723 Large joint: 25180 - Large joint ([id number])
== END | disposition home or self-care (01) ==
PROVIDERS: Visit Provider Orthopaedic Surgery
CPT/HCPCS: 20610

== ENCOUNTER 2024-12-12 08:40 | Outpatient (AMB) | payer OTHER, SELFPAY ==
--- NOTE | 2024-12-12 08:44 | A.OFFVIS_ITS ---
Vital Signs 12/12/24 08:48 Height 5 ft 4 in Weight 210 lb BMI 36.0 Intake Visit Reasons: Bilateral knee pain Intake Note: Tennille is a 59 year old female who presents with complaints of bilateral knee pains. She describes her pains as sharp in nature. She has tried physical therapy exercises which aggravated her pains. She has also tried Tylenol and anti-inflammatory medicines which gave her minimal relief. She has had cortisone injections and Euflexxa injections which gave her temporary relief. She wishes to hold off on surgery if at all possible. Her bilateral knee pains are now interfering with her activities of daily living and her ability to sleep well through the night. Allergies No Known Allergies Allergy (Verified 12/12/24 08:47) Medication List - Last Reviewed 12/12/24 by TIFFANIE Vanegas tirzepatide (weight loss) (Zepbound) mg subcut [facility] Medical History (Updated 08/21/24 @ 12:14 by Red Wylie MD) Asthma Arthritis Low back pain GERD (gastroesophageal reflux disease) Surgical History H/O arthroscopy of left knee H/O arthroscopy of right knee Social History Household Members Other:: daughter 17 yr Are you a primary intensive care medicine specialist to a significant other at home: No Do you presently have visiting nurse or other home services: No Patient Tobacco Use Status: Former Tobacco user Tobacco use type: Cigarette Current occupational status: employed Current occupation: Home Health Aide Physical Exam Vital Signs: BMI result Body Mass Index 36.0 Const Other: Well-nourished well-developed very friendly female awake alert and oriented x3 in no acute distress Extrem Other: Bilateral lower extremity examination shows good capillary refill, no skin lesions noted, normal sensation light touch Bilateral knee examination shows minimal effusions, palpable crepitus with range of motion, pain with range of motion, no instability Office Procedures AMB Joint Injection/Aspiration Joint Injection/Aspiration Primary Site: left knee Prep: site was prepped using aseptic technique Injected: 40 mg of, DepoMedrol and 1% plain lidocaine Procedure: The patient tolerated the procedure well Coding 46346 - Large joint Procedure code (CPT) selection complete AMB Joint Injection/Aspiration Joint Injection/Aspiration Primary Site: right knee Prep: site was prepped using aseptic technique Injected: 40 mg of, DepoMedrol and 1% plain lidocaine Procedure: The patient tolerated the procedure well Coding - Large joint Procedure code (CPT) selection complete Results Reviewed Results Reviewed: X-rays of the patient's bilateral knees taken previously show joint space narrowing, subchondral sclerosis, no acute bony abnormalities Assessment & Plan Assessment & Plan (1) Osteoarthritis of left knee: Code(s): M17.12 - Unilateral primary osteoarthritis, left knee Category: Medical (2) Osteoarthritis of right knee: Code(s): M17.11 - Unilateral primary osteoarthritis, right knee Category: Medical (3) Pain in both knees: Code(s): M25.561 - Pain in right knee; M25.562 - Pain in left knee Plan Ms. Burton presents with bilateral knee pains due to osteoarthritis. The risks and benefits of bilateral knee cortisone injections were discussed at length with the patient. The patient wished to proceed. She tolerated the injections well. If she does not get lasting relief from the cortisone injections I will see whether or not her insurance company will cover a another series of Euflexxa viscosupplementation injections. I will see her back once the injections are available. Feel free to call me at any time should questions regarding her orthopedic management arise. I spent 22 minutes in reviewing the patient's records and imaging studies, seeing the patient and documenting in the medical record. Orders: Orders AMB Joint Injection/Aspiration Today M17.12 - Unilateral primary osteoarthritis, left knee AMB Joint Injection/Aspiration Today M17.11 - Unilateral primary osteoa rthritis, right knee Coding Level of Care Code Est Pt Level 3 (06603) Complex EM visit Add On G2211 Diagnoses Osteoarthritis of left knee M17.12 Osteoarthritis of right knee M17.11 Pain in both knees M25.561; M25.562 CPT Codes Coding - Large joint: 99265 - Large joint ([id number]) Coding - 22097 Large joint: 83227 - Large joint ([id number])
[2024-12-12 08:48] VITALS: BMI 36.0
--- OUTSIDE RECORDS SUMMARY | 2024-12-12 08:57 | XMS_ITS | Encounter Summary ---
Author Organization [facility] Address [address] [place] [address] Care Team Providers Care Cold Strip Feeder Name Role Phone Millie Castellano MD Primary Care Provider Reason for Visit * Reason Onset Date Comments Prior Auth 11/08/2024 Zepbound Encounter Details Date Type Department Care Team ([facility] Contact Info) Description 11/08/2024 Telephone Adult Medicine [facility] [address] [place] [phone] Millie Castellano MD [address] [place] [address] Prior Auth (Zepbound) Social History Tobacco Use Types Packs/Day Years Used Date Smoking Tobacco: Former Cigarettes Q uit: 04/12/1993 Smokeless Tobacco: Never Alcohol Use Standard Drinks/Week Comments Yes 0 (1 standard drink = 0.6 oz pur e alcohol) Housing Instability Answer Date Recorde d Are you worried that in the next 2 months you may not have stable housing? No 12/02/2024 Food Access & Nutrition Answer Date Rec orded Do you have access to a vari ety of food including fruits and vegetables? Yes 12/02/2024 Access to Healthcare Answer Date Record ed Within the last 3 months, ho w many times did you visit the emergency department for your medical care? 1 12/02/2024 Health Literacy Answer Date Recorded How often do you need to hav e someone help you when you read instructions, pamphlets, or other written material from your doctor or pharmacy? Never 12/02/2024 Caregiver: How often do you need to have someone help you when you read instructions, pamphlets, or other written material from your doctor or pharmacy? Not on file 12/02/2024 Financial Risk Answer Date Recorded How hard is it for you to pa y for the very basics like food, housing, medical care, and air conditioning / heating? Not very hard 12/02/2024 Transportation Answer Date Recorded Has the lack of transportati on kept you from meetings, work, or from getting things needed for daily living? No Has the lack of transportati on kept you from medical appointments or from getting medications? No 12/02/2024 Social Isolation Answer Date Recorded How often do you feel lonely or isolated from th ose around you? Never 12/02/2024 Food Risk Answer Date Recorded Within the past 12 months we worried whether our food would run out before we got money to buy more. Never true 12/02/2024 Within the past 12 months th e food we bought just didn't last and we didn't have money to get more. Never true 12/02/2024 Dependent Care Answer Date Recorded Do you need help finding or paying for care for your loved ones. For example, child and family counselor or elderly care for an older adult? No 12/02/2024 Education Answer Date Recorded Do you think completing more education or training, like finishing a GED, going to college, or learning a trade, would be helpful for you? No 12/02/2024 Employment and Income Answer Date Recor ded During the last four weeks, have you been actively looking for work? No 12/02/2024 Living Situation Answer Date Recorded What is your living situation? 0 12/02/2024 Comments No Sex and Gender Information Value Date Recorded Sex Assigned at Not on file Legal Sex Female 2:24 PM EST Gender Identity Not on file Sexual Orientation Not on file documented as of this encounter Progress Notes * Awilda Borja MA - 12/06/2024 7:52 AM EDT Nirmal approved Approved from 11/04/24 until 06/02/25 Case # [id number] Faxed to [phone] * Awilda Borja MA - 12/03/2024 11:54 AM EDT Prior authorization for the zepbound was completed today on [facility] Dx code E66.812 class 2 obesity Office notes and weight and bmi chart uploaded to [facility] * NIRMAL Lozada - 12/02/2024 3:49 PM EDT Any updates on this? Pt still has not received the medication or information from her insurance about a decision. She was seen today. Thanks in advance. * Josephine Silveira - 11/08/2024 9:43 AM EDT Prior Authorization for Medication-do not complete and send this encounter unless you have the fax from the pharmacy. Is this a Cover My Meds request: Yes -- Kiran Code [id number] Name of Medication tirzepatide, weight loss, (Zepbound) 2.5 mg/0.5 mL injection Dose of Medication 2.5MG What is the RX # from the faxed refill? How does patient take this med? What Pharmacy did the fax come from: [facility] fax #: [employer] Information from fax: What Prescription Plan does the patient have? [facility] rx BIN/PCN if applicable: BIN [id number] PCN IRX Cardholder ID: [id number] Person Code: 01 Relationship Code: Help desk phone: documented in this encounter Plan of Treatment Upcoming Encounters Date Type Department Care Team (Late st Contact Info) Description 01/31/2025 12:30 PM EDT Office Visit Adult Medicine - [address] [address] Manolo Schilling PA [address] [place] [address] documented as of this encounter Visit Diagnoses Not on filedocumented in this encounter Additional Health Concerns Assessment Noted Time PHQ-9 Depression Total Score: 0 07/16/20 24 1:32 PM EST documented as of this encounter Care Teams Cold Strip Feeder Relationship Specialty Start Date End Date Millie Castellano MD [address] [place] [id number] PCP - General Internal Medicine 11/25/21 documented as of this encounter
--- OUTSIDE RECORDS SUMMARY | 2024-12-12 08:57 | XMS_ITS | Encounter Summary ---
Author Organization [facility] Address [address] [facility] 7 [place] [address] Care Team Providers Care Retread Technician Name Role Phone Unavailable Primary Care Provider [...]
--- OUTSIDE RECORDS SUMMARY | 2024-12-12 08:57 | XMS_ITS | Clinical Summary ---
Author Organization [facility] [address] [facility] l[address] Address [address] [place] [address] Phone Care Team Providers Care Senior Accountant Analyst Name Role Phone Millie Castellano MD Primary Care Provider Allergies No known active allergies Medications albuterol HFA (PROAIR HFA ; PROVENTIL HFA ; VENTOLIN HFA) 90 mcg/actuation inhaler Inhale 2 puffs by mouth every 6 (six) hours if needed for wheezing. 6.7 g 2 5 Active tirzepatide, weight loss, (Zepbound) 2.5 mg/0.5 mL injectionIndicat ions:Class 2 obesity without serious comorbidity with body mass index (BMI) of 36.0 to 36.9 in adult, unspecified obesity type Inject 0.5 mL (2.5 mg total) under the skin every 7 (seven) days. 2 mL 2 5 Active Additional Information Patient not taking.Reported on 12/02/2024 naproxen (NAPROSYN) 500 mg tabletIndication s:Wrist sprain, right, subsequent encounter Take 1 tablet (500 mg total) by mouth 2 (two) times a day with meals for 10 days. 20 tablet 5 12/13/19 25 Active Active Problems Problem Noted Date Diagnosed Date Shingles 12/09/2022 GERD (gastroesophageal reflux disease) 1 Moderate persistent asthma 05/23/2018 Obesity (BMI 30.0-34.9) 04/12/2018 Pure hypercholesterolemia 01/20/2014 Encounters Date Type Department Care Team Description 12/02/2024 3:00 PM EDT Office Visit Adult [address] [phone] Manolo Schilling PA Wrist sprain, right, subsequent encounter (Primary Dx); Cervical radiculopathy at C6; Wound of right lower extremity, subsequent encounter 12/02/2024 Telephone Adult [address] [phone] Millie Castellano MD Wrist Pain 11/08/2024 Telephone Adult [address] [phone] Millie Castellano MD Prior Auth (Zepbound) 11/04/2024 Telephone Adult [address] [phone] Millie Castellano MD Forms/questionnaires 11/01/2024 Telephone Adult [address] [phone] Millie Castellano MD Medication; Prior Auth 10/18/2024 12:30 PM EDT Office Visit Adult [address] [phone] Manolo Schilling, PA Class 2 obesity without serious comorbidity with body mass index (BMI) of 36.0 to 36.9 in adult, unspecified obesity type (Primary Dx) from Last 3 Months Immunizations Name Administration Dates Next Due Influenza Quadrivalent, 0.5m l, preservative free (Fluarix; FluLaval; Fluzone) ages 6mo and older (Afluria) 3yo and older 08/08/2022 Influenza trivalent, MDCK, 0 .5mL, preservative free (Flucelvax) 6mo and older 07/16/2024 [employer] SARS-CoV-2 COVID -19, vector-nr, rS-Ad26, preservative free 12/03/2020 [employer] SARS-CoV-2 COVID-19, mRNA, LNP-S, preservative free 07/17/2021 Pneumococcal conjugate 13 va lent (Prevnar 13, [...] for your loved ones. For example, child care team lead or elderly care for an older adult? [...] Sign Reading Time Taken Comments Blood Pressure 127/76 12/02/2024 2:59 PM EDT Pulse 68 12/02/2024 2:59 PM EDT Temperature 36.1 ??C (97 ??F) 12/02/2024 2:59 PM EDT Respiratory Rate 16 08/12/2024 2:58 PM EST Oxygen Saturation - - Inhaled Oxygen Concentration - - Weight 94.8 kg (209 lb) 12/02/2024 2:59 PM EDT Height 162.6 cm (5' 4 ) 12/02/2024 2:59 PM EDT Body Mass Index 35.87 12/02/2024 2:59 PM EDT Plan of Treatment Upcoming Encounters Date Type Department Care Team (Late st Contact Info) Description 01/31/2025 12:30 PM EDT Office Visit Adult Medicine - [place] [address] [place] [phone] Manolo Schilling PA [address] [place] [address] Health Maintenance Due Date Last Done Comments Breast Cancer Screening 1967 Hepatitis B Vaccines (1 of 3 - 19+ 3-dose series) 1986 Cervical Cancer Screening: P ap Smear 03/18/2017 03/18/2014, 03/18/2014 Zoster Vaccines (1 of 2) 2017 Pneumococcal Vaccine: 50+ Years (2 of 2 - PPSV23) 05/20/2021 03/25/2021 Pneumococcal Vaccine: Pediatrics (0 to 5 Years) and At-Risk Patients (6 to 64 Years) (2 of 2 - PPSV23) 05/20/2021 03/25/2021 HIV Screening 07/06/2022 COVID-19 Vaccine (4 - 2023-2 5 season) 2024 08/08/2022, 07/17/2021, 12/03/2020 Depression Screening 12/02/2025 12/02/2024 Social Influencers of Health Screening 12/02/2025 12/02/2024 Cholesterol Screening (Lipid Panel) 12/10/2027 12/09/2022 Colorectal Cancer Screening: Colonoscopy 08/07/2031 07/23/2021 DTaP,Tdap,and Td Vaccines (3 - Td [...] patient's age to complete this topic Meningococcal B Vaccine Aged Out No l onger eligible based on patient's age to complete [...] Maintenance Results * (ABNORMAL) Lipid panel (12/09/2022) Pathologist [facility] LDL/HDL Ratio 3 0 - 4 Triglycerides 90 0 - 150 mg/dL Cholesterol 237(A) 0 - 200 mg/dL HDL 73 >=40 mg/dL LDL Cholesterol 146(A) 0 - 100 mg/dL Blood Venous blood specimen / Unknown [facility] Provider LAB BLOOD ORDERABLES Thelma l Result * Colonoscopy (07/23/2021) Pathologist [facility] Colonoscopy No Interpretation , Abstracted Anatomical Region Laterality Modality Other [facility] Provider HEALTH MAINTENANCE Final Result * Hepatitis C Screening (03/30/2021) Pathologist [facility] Hepatitis C Screening Abstracted [facility] Provider HEALTH MAINTENANCE Final Result * Cervical Cancer Screening: HPV (03/18/2014) Pathologist [facility] Cervical Cancer Screening: HPV Negative, Abstracted Historical Provider HEALTH MAINTENANCE Final Result from Last 3 Months or Most Recently Relevant to Health Maintenance Insurance [facility] PUBLIC PLANS Care Teams Senior Accountant Analyst Relationship Specialty Start Date End Date Millie Castellano MD [address] [place] [id number] PCP - General Internal Medicine 11/25/21
--- OUTSIDE RECORDS SUMMARY | 2024-12-12 08:57 | XMS_ITS | Encounter Summary ---
Author Organization [employer] Address 75 [facility] 7 [place] [address] Care Team Providers Care Starch Cooker Name Role Phone Unavailable Primary Care Provider [...]
--- OUTSIDE RECORDS SUMMARY | 2024-12-12 08:57 | XMS_ITS | Clinical Summary ---
Author Organization [employer] Address 75 [facility] 7t [place] [address] Care Team Providers Care Balance Screwhead Polisher Name Role Phone Unavailable Primary Care Provider [...]
--- OUTSIDE RECORDS SUMMARY | 2024-12-12 08:57 | XMS_ITS | Encounter Summary ---
Author Organization [employer] Address 75 [facility] 7 [place] [address] Care Team Providers Care Food Service Helper Name Role Phone Unavailable Primary Care Provider [...]
--- OUTSIDE RECORDS SUMMARY | 2024-12-12 08:57 | XMS_ITS | Encounter Summary ---
Author Organization [employer] Address [address] [facility] 7 [place] [address] Care Team Providers Care Glass Cutter Hand Name Role Phone Unavailable Primary Care Provider [...]
== END 2024-12-12 09:10 | disposition home or self-care (01) ==
LOC: HO.HOS 08:40
PROVIDERS: Visit Provider Orthopaedic Surgery
DX: M17.0 Bilateral primary osteoarthritis of knee (principal)
CPT/HCPCS: 20610; 99213

== ENCOUNTER → 2024-12-12 08:40 | Outpatient (BNVA) | payer OTHER, SELFPAY | PROVIDERS: Visit Provider Orthopaedic Surgery | DX: M17.0 Bilateral primary osteoarthritis of knee (principal); M25.561 Pain in right knee; M25.562 Pain in left knee | CPT/HCPCS: 20610; 99212; J1010; J2003 ==

== ENCOUNTER 2025-04-24 08:58 | Outpatient (AMB) | payer OTHER, SELFPAY ==
[2025-04-24 09:00] VITALS: BMI 36.0
--- NOTE | 2025-04-24 09:00 | MHC.OFFVIS ---
Vital Signs 04/24/25 09:00 Height 5 ft 4 in Weight 210 lb BMI 36.0 Intake Visit Reasons: Inj- Bilateral knee Euflexxa #1 Intake Note: Tennille is a 59 year old woman who presents today for a her bilateral knee injections, Euflexxa #1. She describes her knee pains as sharp in nature. She has had viscosupplementation injections in the past which gave her fairly good relief. She has failed the last 3 months of conservative treatment. She wishes to hold off on surgery if at all possible. Allergies No Known Allergies Allergy (Verified 04/24/25 09:03) Medication List - Last Reconciled 04/24/25 by Red Wylie MD tirzepatide (weight loss) (Zepbound) mg subcut [facility] Medical History (Updated 08/21/24 @ 12:14 by Red Wylie MD) Asthma Arthritis Low back pain GERD (gastroesophageal reflux disease) Surgical History H/O arthroscopy of left knee H/O arthroscopy of right knee Social History Household Members Other:: daughter 17 yr Are you a primary hemodialysis patient care specialist to a significant other at home: No Do you presently have visiting nurse or other home services: No Patient Tobacco Use Status: Former Tobacco user Tobacco use type: Cigarette Current occupational status: employed Current occupation: Home Health Aide Physical Exam Vital Signs: BMI result Body Mass Index 36.0 Const Other: Well-nourished well-developed very friendly female awake alert and oriented x3 in no acute distress Extrem Other: Bilateral knee examination shows minimal effusions, palpable crepitus with range of motion, pain range of, no instability Office Procedures AMB Joint Injection/Aspiration Joint Injection/Aspiration Primary Site: left knee Prep: site was prepped using aseptic technique Injected: 20 mg of (Euflexxa viscosupplementation) and 1% plain lidocaine Procedure: The patient tolerated the procedure well Coding 28339 - Large joint Procedure code (CPT) selection complete AMB Joint Injection/Aspiration Joint Injection/Aspiration Primary Site: right knee Prep: site was prepped using aseptic technique Injected: 20 mg of (Euflexxa viscosupplementation) and 1% plain lidocaine Procedure: The patient tolerated the procedure well Coding 02154 - Large joint Procedure code (CPT) selection complete Results Reviewed Results Reviewed: X-rays of the patient's bilateral knees taken previously show joint space narrowing, subchondral sclerosis, no acute bony abnormalities Assessment & Plan Assessment & Plan (1) Osteoarthritis of left knee: Code(s): M17.12 - Unilateral primary osteoarthritis, left knee Category: Medical (2) Osteoarthritis of right knee: Code(s): M17.11 - Unilateral primary osteoarthritis, right knee Category: Medical Plan Ms. Burton presents with bilateral knee pains due to osteoarthritis. The risks and benefits of a series of Euflexxa viscosupplementation injections for both of her knees were discussed at length with the patient. The patient wished to proceed. She tolerated the 1st set of injections well. She will follow up next week as scheduled. Feel free to call me at any time should questions regarding her orthopedic management arise. I spent 22 minutes in reviewing the patient's records and imaging studies, seeing the patient and documenting in the medical record. Orders: Orders AMB Joint Injection/Aspiration Today M17.12 - Unilateral primary osteoarthritis, left knee AMB Joint Injection/Aspiration Today M17.11 - Unilateral primary osteoarthritis, right knee Coding Level of Care Code Est Pt Level 3 (37184) Complex EM visit Add On G2211 Diagnoses Osteoarthritis of left knee M17.12 Osteoarthritis of right knee M17.11 CPT Codes Coding - Large joint: 43100 - Large joint ([id number]) Coding - 56192 Large joint: 71346 - Large joint ([id number])
--- OUTSIDE RECORDS SUMMARY | 2025-04-24 10:22 | XMS_ITS | Clinical Summary ---
Author Organization [facility] 230 [facility] Address [address] [place] [address] Phone Care Team Providers Care Neurosurgical Nurse Name Role Phone Millie Castellano MD Primary Care Provider Allergies No known active allergies Medications albuterol HFA (PROAIR HFA ; PROVENTIL HFA ; VENTOLIN HFA) 90 mcg/actuation inhaler Inhale 2 puffs by mouth every 6 (six) hours if needed for wheezing. 6.7 g 2 08/12/2024 Active tirzepatide, weight loss, (Zepbound) 5 mg/0.5 mL injectionIndicat ions:Class 1 obesity without serious comorbidity with body mass index (BMI) of 32.0 to 32.9 in adult, unspecified obesity type Inject 0.5 mL (5 mg total) under the skin every 7 (seven) days. 2 mL 2 01/30/2025 Active Active Problems Problem Noted Date Diagnosed Date Shingles 12/09/2022 GERD (gastroesophageal reflux disease) Moderate persistent asthma 05/23/2018 Obesity (BMI 30.0-34.9) 04/12/2018 Pure hypercholesterolemia 01/20/2014 Encounters Date Type Department Care Team Description 03/05/2025 Telephone Adult [facility] [address] [place] [phone] Millie Castellano MD 02/03/2025 Telephone Adult [facility] [address] [place] [phone] Manolo Schilling PA 01/30/2025 8:00 AM EDT Office Visit Adult Medicine [address] [phone] Manolo Schilling PA Class 1 obesity without serious comorbidity with body mass index (BMI) of 32.0 to 32.9 in adult, unspecified obesity type (Primary Dx); Neuroforaminal stenosis of cervical spine from Last 3 Months Immunizations Name Administration Dates Next Due Influenza Quadrivalent, 0.5m l, preservative free (Fluarix; FluLaval; Fluzone) ages 6mo and older (Afluria) 3yo and older 08/08/2022 Influenza trivalent, MDCK, 0 .5mL, preservative free (Flucelvax) 6mo and older 07/16/2024 [employer] SARS-CoV-2 COVID -19, vector-nr, rS-Ad26, preservative free 12/03/2020 [employer] SARS-CoV-2 COVID-19, mRNA, LNP-S, preservative free 07/17/2021 [...] for your loved ones. For example, child specialist or elderly care for an older adult? [...] Sign Reading Time Taken Comments Blood Pressure 110/70 01/30/2025 8:04 AM EDT Pulse 76 01/30/2025 8:04 AM EDT Temperature 36.7 C (98 F) 01/30/2025 8:04 AM EDT Respiratory Rate 16 08/12/2024 2:58 PM EST Oxygen Saturation - - Inhaled Oxygen Concentration - - Weight 86.4 kg (190 lb 6.4 oz) 01/30/2025 8:04 A M EDT Height 162.6 cm (5' 4 ) 01/30/2025 8:04 AM EDT Body Mass Index 32.68 01/30/2025 8:04 AM EDT Plan of Treatment Upcoming Encounters Date Type Department Care Team (Late st Contact Info) Description 06/02/2025 8:45 AM EDT Office Visit Adult Medicine - [address] [phone] Manolo Schilling, PA [address] [place] [address] Health Maintenance Due Date Last Done Comments Breast Cancer Screening 1967 Hepatitis B Vaccines (1 of 3 - 19+ 3-dose series) 1986 Cervical Cancer Screening: P ap Smear 03/18/2017 03/18/2014, 03/18/2014 Zoster Vaccines (1 of 2) 2017 Pneumococcal Vaccine: 50+ Years (2 of 2 - PPSV23) 05/20/2021 03/25/2021 HIV Screening 07/06/2022 COVID-19 Vaccine (2024-2 6 season) 2025 08/08/2022, 07/17/2021, 12/03/2020 Influenza Vaccine (#1) 2025 , 08/08/2022 Social Influencers of Health Screening 12/02/2025 12/02/2024 Cholesterol Screening (Lipid Panel) 01/03/2030 01/03/2025, 12/09/2022 Colorectal Cancer Screening: Colonoscopy 08/07/2031 07/23/2021 DTaP,Tdap,and Td Vaccines (3 - Td or Tdap) 07/16/2034 07/16/2024, 01/20/2014 RSV Immunization Adult Patients (1 - 1-dose 75+ series) 2042 Hepatitis C Screening Completed 03/30/2021 Depression Screening Completed 12/02/2024 HIB Vaccines Aged Out No longer eligi [...] Priority Date/Time Associated Diagnosis Comments LIPID PANEL WITH REFLEX TO DIRECT LDL Routine 01/03/2025 9:21 AM EDT Routine general medical examination at a health care facility COLONOSCOPY Routine 07/23/2021 HEPATITIS C SCREENING Routine 03/30/2021 HPV Routine 03/18/2014 from Last 3 Months or Most Recently Relevant to Health Maintenance Results * Lipid panel with reflex to direct LDL (01/03/2025 9:21 AM EDT) [facility] Cholesterol 183 0 - 200 mg/dL LAB CHEMISTRY METHOD 01/03/2025 2:45 PM EDT [facility] Triglycerides 100 0 - 150 mg/dL LAB CHEMISTRY METHOD 01/03/2025 2:45 PM EDT [facility] HDL 67 >=40 mg/dL LAB CHEMISTRY METHOD 01/03/2025 2:45 PM EDT [facility] LDL Calculated 96 0 - 100 mg/dL LAB CHEMISTRY METHOD 01/03/2025 2:45 PM EDT [facility] VLDL Cholesterol Alexandru 20 mg/dL LAB CHEMISTRY METHOD 01/03/2025 2:45 PM EDT [facility] Non HDL Chol. (LDL+VLDL) 116 <145 mg/dL LAB CHEMISTRY METHOD 01/03/2025 2:45 PM EDT [facility] Chol/HDL Ratio 2.7 0.0 - 4.4 LAB CHEMISTRY METHOD 01/03/2025 2:45 PM EDT [facility] Blood Venous blood specimen / Unknown Venipuncture / Unknown 01/03/2025 9:21 AM EDT 01/03/2025 9:21 AM EDT Manolo MURRAY LAB BLOOD ORDERABLES Final Re sult [facility] [address] [place] [address], * Colonoscopy (07/23/2021) [facility] Colonoscopy No Interpretation , Abstracted Anatomical Region Laterality Modality Other [facility] Provider HEALTH MAINTENANCE Final Result * Hepatitis C Screening (03/30/2021) [facility] Hepatitis C Screening Abstracted [facility] Provider HEALTH MAINTENANCE Final Result * Cervical Cancer Screening: HPV (03/18/2014) [facility] Cervical Cancer Screening: HPV Negative, Abstracted [facility] Provider HEALTH MAINTENANCE Final Result from Last 3 Months or Most Recently Relevant to Health Maintenance Insurance [facility] PLANS Care Teams Neurosurgical Nurse Relationship Specialty Start Date End Date Millie Castellano MD [address] [place] [phone] PCP - General Internal Medicine 11/25/21
--- OUTSIDE RECORDS SUMMARY | 2025-04-24 10:22 | XMS_ITS | Encounter Summary ---
Author Organization [employer] Address 75 [facility] 7 [place] [address] Care Team Providers Care Medical Biller/Coder Name Role Phone Unavailable Primary Care Provider [...]
--- OUTSIDE RECORDS SUMMARY | 2025-04-24 10:22 | XMS_ITS | Clinical Summary ---
Author Organization [employer] Address 75 [facility] 7t [place] [address] Care Team Providers Care Interior Horticulturist Name Role Phone Unavailable Primary Care Provider [...] 1967 FIT 1967 FOBT 1967 Sigmoidoscopy 1967 Disability Screening 1967 Alcohol/Substance Use Screening 1979 Tobacco Screening 1979 DTaP/Tdap/Td Vaccines (1 - Tdap) 1986 Hepatitis B Vaccines (1 of 3 - 19+ 3-dose series) 1986 Pap Smear 1988 Cervical Cancer Screening 1997 HPV/Cotest 1997 Mammogram 2007 Pneumococcal Vaccine: 50+ Ye ars (1 of 1 - PCV) 2017 Zoster Vaccines (1 of 2) 2017 COVID-19 Vaccine (1 - 2023-2 5 season) 2025 Influenza Vaccine (#1) 2025 RSV Patients and Pa tients Aged 60 [...]
--- OUTSIDE RECORDS SUMMARY | 2025-04-24 10:22 | XMS_ITS | Encounter Summary ---
Author Organization [employer] Address 75 [facility] 7 [place] [address] Care Team Providers Care Training And Development Specialist Name Role Phone Unavailable Primary Care [...]
--- OUTSIDE RECORDS SUMMARY | 2025-04-24 10:22 | XMS_ITS | Encounter Summary ---
Author Organization [employer] Address 75 [facility] 7 [place] [address] Care Team Providers Care Staffing Rn Name Role Phone Unavailable Primary Care Provider [...]
--- OUTSIDE RECORDS SUMMARY | 2025-04-24 10:22 | XMS_ITS ---
Author Name [facility] Organization Unknown Care Team Organization Name Specialty Phone Email Start Date End Da te [facility] Millie Castellano MD Primary Care 01/13/2023 03/25/2024 [facility] Donald Angel Primary Care 06/14/202203/07
--- OUTSIDE RECORDS SUMMARY | 2025-04-24 10:22 | XMS_ITS | Encounter Summary ---
Author Organization [employer] Address 75 [facility] 7 [place] [address] Care Team Providers Care Service Associate Name Role Phone Unavailable Primary Care Provider [...]
== END 2025-04-24 09:20 | disposition home or self-care (01) ==
LOC: HO.HOS 08:59
PROVIDERS: Visit Provider Orthopaedic Surgery
DX: M17.0 Bilateral primary osteoarthritis of knee (principal)
CPT/HCPCS: 20610; 99213

== ENCOUNTER → 2025-04-24 08:58 | Outpatient (BNVA) | payer OTHER, SELFPAY | PROVIDERS: Visit Provider Orthopaedic Surgery | DX: M17.0 Bilateral primary osteoarthritis of knee (principal) | CPT/HCPCS: 20610; 99212; J2003; J7323 ==

== ENCOUNTER 2025-05-01 08:51 | Outpatient (AMB) | payer OTHER, SELFPAY ==
--- NOTE | 2025-05-01 08:56 | A.OFFVIS_ITS ---
Intake Visit Reasons: Inj- Bilateral knee Euflexxa #2 Intake Note: Tennille is a 59 year old female who presents today for Bilateral Euflexxa Injections #2. She has mild relief after the first set of injections but the right knee continues to be particularly painful. She continues with her home exercise program. Allergies No Known Allergies Allergy (Verified 05/01/25 08:57) Medication List - Last Reconciled 05/01/25 by Red Wylie MD tirzepatide (weight loss) (Zepbound) mg subcut [facility] Medical History (Updated 08/21/24 @ 12:14 by Red Wylie MD) Asthma Arthritis Low back pain GERD (gastroesophageal reflux disease) Surgical History H/O arthroscopy of left knee H/O arthroscopy of right knee Social History Household Members Other:: daughter 17 yr Are you a primary chiropractic care to a significant other at home: No Do you presently have visiting nurse or other home services: No Patient Tobacco Use Status: Former Tobacco user Tobacco use type: Cigarette Current occupational status: employed Current occupation: Home Health Aide Physical Exam Extrem Other: Bilateral knee examination shows minimal effusions, palpable crepitus with range of motion, pain with range of motion, no instability Office Procedures AMB Joint Injection/Aspiration Joint Injection/Aspiration Primary Site: left knee Prep: site was prepped using aseptic technique Injected: 20 mg of (Euflexxa viscosupplementation) and 1% plain lidocaine Procedure: The patient tolerated the procedure well Coding 00008 - Large joint Procedure code (CPT) selection complete AMB Joint Injection/Aspiration Joint Injection/Aspiration Primary Site: right knee Prep: site was prepped using aseptic technique Injected: 20 mg of (Euflexxa viscosupplementation) and 1% plain lidocaine Procedure: The patient tolerated the procedure well Coding 77566 - Large joint Procedure code (CPT) selection complete Assessment & Plan Assessment & Plan (1) Osteoarthritis of left knee: Code(s): M17.12 - Unilateral primary osteoarthritis, left knee Category: Medical (2) Osteoarthritis of right knee: Code(s): M17.11 - Unilateral primary osteoarthritis, right knee Category: Medical Plan Ms. Burton presents with bilateral knee pains due to osteoarthritis. The risks and benefits of a 2nd set of Euflexxa injections were discussed at length with the patient. The patient wished to proceed. She tolerated the injections well. She will continue with her home exercise program. She will follow up next week as scheduled. Feel free to call me at any time should questions regarding her orthopedic management arise. Orders: Orders AMB Joint Injection/Aspiration Today M17.12 - Unilateral primary osteoarthritis, left knee AMB Joint Injection/Aspiration Today M17.11 - Unilateral primary osteoarthritis, right knee Coding Level of Care Code Procedure Only Diagnoses Osteoarthritis of left knee M17.12 Osteoarthritis of right knee M17.11 CPT Codes Coding - 68881 Large joint: 83933 - Large joint ([id number]) Coding - 95403 Large joint: 52125 - Large joint ([id number])
--- OUTSIDE RECORDS SUMMARY | 2025-05-01 09:29 | XMS_ITS | Clinical Summary ---
Author Organization [employer] Address 75 [facility] 7t [place] [address] Care Team Providers Care Hearing Impaired Itinerant Teacher Name Role Phone Unavailable Primary Care Provider [...]
--- OUTSIDE RECORDS SUMMARY | 2025-05-01 09:29 | XMS_ITS | Clinical Summary ---
Author Organization [facility] [address] [facility] Address [address] [place] [address] Phone Care Team Providers Care Consumer Advocate Name Role Phone Millie Castellano MD Primary [...] Care Team Description 03/05/2025 Telephone Adult Medicine [facility] [address] [place] [address] Millie Castellano MD 02/03/2025 Telephone Adult Medicine [facility] [address] [place] [address] Manolo Schilling PA 01/30/2025 8:00 AM EDT Office Visit Adult Medicine [address] [phone] Manolo Schilling PA Class 1 [...] preservative free (Flucelvax) 6mo and older 07/16/2024 [employer] SARS-CoV-2 COVID -19, vector-nr, rS-Ad26, preservative free 12/03/2020 [employer] SARS-CoV-2 COVID-19, mRNA, LNP-S, preservative free 07/17/2021 [...] your loved ones. For example, child care center administrator or elderly care for an older adult? [...] AM EDT Office Visit Adult Medicine - [address] [phone] Manolo Schilling, PA [address] [place] [address] Health Maintenance Due Date Last Done Comments [...] to direct LDL (01/03/2025 9:21 AM EDT) [facility] Cholesterol 183 0 - 200 mg/dL LAB CHEMISTRY METHOD 01/03/2025 2:45 PM EDT [facility] Triglycerides 100 0 - 150 mg/dL LAB CHEMISTRY METHOD 01/03/2025 2:45 PM EDT [facility] HDL 67 >=40 mg/dL LAB CHEMISTRY METHOD 01/03/2025 2:45 PM EDT [facility] LDL Calculated 96 0 - 100 mg/dL LAB CHEMISTRY METHOD 01/03/2025 2:45 PM EDT [facility] VLDL Cholesterol Alexandru 20 mg/dL LAB CHEMISTRY METHOD 01/03/2025 2:45 PM EDT [facility] Non HDL Chol. (LDL+VLDL) 116 <145 mg/dL LAB CHEMISTRY METHOD 01/03/2025 2:45 PM EDT [facility] Chol/HDL Ratio 2.7 0.0 - 4.4 LAB CHEMISTRY METHOD 01/03/2025 2:45 PM EDT [facility] Blood Venous blood specimen / Unknown Venipuncture / Unknown 01/03/2025 9:21 AM EDT 01/03/2025 9:21 AM EDT Manolo MURRAY LAB BLOOD ORDERABLES Final Re sult [facility] [address] [place] [address], * Colonoscopy (07/23/2021) [facility] Colonoscopy No Interpretation , Abstracted Anatomical Region Laterality Modality Other [facility] Provider HEALTH MAINTENANCE Final Result * Hepatitis C Screening (03/30/2021) [facility] Hepatitis C Screening Abstracted [facility] Provider HEALTH MAINTENANCE Final Result * Cervical Cancer Screening: HPV (03/18/2014) [facility] Cervical Cancer Screening: HPV Negative, Abstracted [facility] Provider HEALTH MAINTENANCE Final Result from Last 3 Months or Most Recently Relevant to Health Maintenance Insurance [facility] [employer] Care Teams Consumer Advocate Relationship Specialty Start Date End Date Millie Castellano MD [address] [place] [address] [phone] PCP - General Internal Medicine 11/25/21
--- OUTSIDE RECORDS SUMMARY | 2025-05-01 09:29 | XMS_ITS | Encounter Summary ---
Author Organization [employer] Address [address] [facility] 7 [place] [address] Care Team Providers Care Portrait Artist Name Role Phone Unavailable Primary Care Provider [...]
--- OUTSIDE RECORDS SUMMARY | 2025-05-01 09:29 | XMS_ITS | Encounter Summary ---
Author Organization [employer] Address [address] [facility] [address] [place] [address] Care Team Providers Care Corporate Specialist Name Role Phone Unavailable Primary Care [...] Visit Diagnoses Not on filedocumented in this encounter"
--- OUTSIDE RECORDS SUMMARY | 2025-05-01 09:29 | XMS_ITS | Encounter Summary ---
Author Organization [employer] Address [address] [facility] 7 [place] [address] Care Team Providers Care Advertising Sales Associate Name Role Phone Unavailable Primary Care [...]
--- OUTSIDE RECORDS SUMMARY | 2025-05-01 09:29 | XMS_ITS | Encounter Summary ---
Author Organization [employer] Address [address] [facility] 7 [place] [address] Care Team Providers Care Ladle Liner Name Role Phone Unavailable Primary Care Provider [...]
== END 2025-05-01 09:09 | disposition home or self-care (01) ==
LOC: HO.HOS 08:51
PROVIDERS: Visit Provider Orthopaedic Surgery
DX: M17.0 Bilateral primary osteoarthritis of knee (principal)
CPT/HCPCS: 20610

== ENCOUNTER → 2025-05-01 08:51 | Outpatient (BNVA) | payer OTHER, SELFPAY | PROVIDERS: Visit Provider Orthopaedic Surgery | DX: M17.11 Unilateral primary osteoarthritis, right knee (principal); M17.12 Unilateral primary osteoarthritis, left knee | CPT/HCPCS: 20610; J2003; J7323 ==

== ENCOUNTER 2025-05-08 08:48 | Outpatient (AMB) | payer OTHER, SELFPAY ==
--- NOTE | 2025-05-08 08:54 | MHC.OFFVIS ---
Vital Signs 05/08/25 08:57 Height 5 ft 4 in Weight 166 lb BMI 28.5 Intake Visit Reasons: Inj- Bilateral knee Euflexxa #3 Intake Note: Tennille is a 59 year old female who presents for follow-up of her bilateral knee pains. She states that she has gotten fairly good relief from the 1st 2 sets of Euflexxa injections. She continues with her home exercise program. Allergies No Known Allergies Allergy (Verified 05/08/25 08:57) Medication List - Last Reconciled 05/08/25 by Red Wylie MD tirzepatide (weight loss) (Zepbound) mg subcut [facility] Medical History Asthma Arthritis Low back pain GERD (gastroesophageal reflux disease) Surgical History H/O arthroscopy of left knee H/O arthroscopy of right knee Social History Household Members Other:: daughter 17 yr Are you a primary rn progressive care to a significant other at home: No Do you presently have visiting nurse or other home services: No Patient Tobacco Use Status: Former Tobacco user Tobacco use type: Cigarette Current occupational status: employed Current occupation: Home Health Aide Physical Exam Vital Signs: BMI result Body Mass Index 28.5 Extrem Other: Bilateral knee examination shows minimal effusions, palpable crepitus with range of motion, pain with range motion, no instability Office Procedures AMB Joint Injection/Aspiration Joint Injection/Aspiration Primary Site: left knee Prep: site was prepped using aseptic technique Injected: 20 mg of (Euflexxa viscosupplementation) and 1% plain lidocaine Procedure: The patient tolerated the procedure well Coding 71844 - Bilateral Large Joint Procedure code (CPT) selection complete AMB Joint Injection/Aspiration Joint Injection/Aspiration Primary Site: right knee Prep: site was prepped using aseptic technique Injected: 20 mg of (Euflexxa viscosupplementation) and 1% plain lidocaine Procedure: The patient tolerated the procedure well Coding 90508 - Large joint Procedure code (CPT) selection complete Assessment & Plan Assessment & Plan (1) Osteoarthritis of left knee: Code(s): M17.12 - Unilateral primary osteoarthritis, left knee Category: Medical (2) Osteoarthritis of right knee: Code(s): M17.11 - Unilateral primary osteoarthritis, right knee Category: Medical Plan Ms. Burton presents with bilateral knee pains due to osteoarthritis. The risks and benefits of a 3rd set of Euflexxa injections were discussed at length with the patient. She wished to proceed. She tolerated the injections well. She will contact me prior to her follow-up appointment in 3 months should any questions or concerns arise. I spent 20 minutes in reviewing the patient's records and imaging studies, seeing the patient and documenting in the medical record. Orders: Orders AMB Joint Injection/Aspiration Today M17.12 - Unilateral primary osteoarthritis, left knee AMB Joint Injection/Aspiration Today M17.11 - Unilateral primary osteoarthritis, right knee Coding Level of Care Code Est Pt Level 3 (90680) Complex EM visit Add On G2211 Diagnoses Osteoarthritis of left knee M17.12 Osteoarthritis of right knee M17.11 CPT Codes Coding - 93074 - Bilateral Large Joint: 04353 - Bilateral Large Joint ([id number]) Coding - 50417 Large joint: 74057 - Large joint ([id number])
[2025-05-08 08:57] VITALS: BMI 28.5
--- OUTSIDE RECORDS SUMMARY | 2025-05-08 09:17 | XMS_ITS | Encounter Summary ---
Author Organization [employer] Address 75 [facility] 7 [place] [address] Care Team Providers Care Arbitrator Name Role Phone Unavailable Primary Care Provider [...]
--- OUTSIDE RECORDS SUMMARY | 2025-05-08 09:17 | XMS_ITS | Clinical Summary ---
Author Organization [employer] Address [address] [facility] 7t [place] [address] Care Team Providers Care Roll Dough Divider Name Role Phone Unavailable Primary Care Provider [...]
--- OUTSIDE RECORDS SUMMARY | 2025-05-08 09:17 | XMS_ITS | Encounter Summary ---
Author Organization [employer] Address [address] [facility] [address] [place] [address] Care Team Providers Care Hematology Oncology Consultant Name Role Phone Unavailable Primary Care [...]
--- OUTSIDE RECORDS SUMMARY | 2025-05-08 09:17 | XMS_ITS | Encounter Summary ---
Author Organization [employer] Address [address] [facility] 7 [place] [address] Care Team Providers Care Cardiac Cath Lab Manager Name Role Phone Unavailable Primary Care Provider [...]
--- OUTSIDE RECORDS SUMMARY | 2025-05-08 09:17 | XMS_ITS | Clinical Summary ---
Author Organization [facility] [address] [facility] [address] Address [address] [place] [address] Phone Care Team Providers Care Director Transition Name Role Phone Millie Castellano MD Primary Care Provider Allergies No known active allergies Medications albuterol HFA (PROAIR HFA ; PROVENTIL HFA ; VENTOLIN HFA) 90 mcg/actuation inhaler Inhale 2 puffs by mouth every 6 (six) hours if needed for wheezing. 6.7 g 2 08/12/19 25 Active Zepbound 5 mg/0.5 mL injectionIndica tions:Class 1 obesity without serious comorbidity with body mass index (BMI) of 32.0 to 32.9 in adult, unspecified obesity type INJECT CONTENTS OF 1 PEN UNDER THE SKIN ONCE WEEKLY 2 mL 2 05/05/20 25 Active tirzepatide, weight loss, (Zepbound) 5 mg/0.5 mL injectionIndica tions:Class 1 obesity without serious comorbidity with body mass index (BMI) of 32.0 to 32.9 in adult, unspecified obesity type Inject 0.5 mL (5 mg total) under the skin every 7 (seven) days. 2 mL 2 01/31/20 25 025 Discontinued Active Problems Problem Noted Date Diagnosed Date Shingles 12/09/2022 GERD (gastroesophageal reflux disease) Moderate persistent asthma 05/23/2018 Obesity (BMI 30.0-34.9) 04/12/2018 Pure hypercholesterolemia 01/20/2014 Encounters Date Type Department Care Team Description 03/05/2025 Telephone Adult Medicine [address] [phone] Millie Castellano MD from Last 3 Months Immunizations Immunization Administration Dates Next Due Influenza Quadrivalent, 0.5m l, preservative free (Fluarix; FluLaval; Fluzone) ages 6mo and older (Afluria) 3yo and older 08/08/2022 Influenza trivalent, MDCK, 0 .5mL, preservative free (Flucelvax) 6mo and older 07/16/2024 [employer] SARS-CoV-2 COVID -19, vector-nr, rS-Ad26, preservative free 12/03/2020 [employer] SARS-CoV-2 COVID-19, mRNA, LNP-S, preservative free 07/17/2021 [...] for your loved ones. For example, child life specialist or elderly care for an older [...] Date Recorded What is your living situation? Unrecognized valu e 12/02/2024 Comments No Sex and Gender Information [...] AM EDT Office Visit Adult Medicine - [address] [phone] Manolo Schilling, PA [address] [place] [address] Health Maintenance Due Date Last Done Comments Breast Cancer Screening 1965 Hepatitis B Vaccines (1 of 3 - 19+ 3-dose series) 1986 Cervical Cancer Screening: P ap Smear 03/18/2017 03/18/2014, 03/18/2014 Zoster Vaccines (1 of 2) 2017 Pneumococcal Vaccine: 50+ Years (2 of 2 - PPSV23, PCV20, or PCV21) 05/20/2021 03/25/2021 HIV Screening 07/06/2022 COVID-19 Vaccine (4 - 2024-2 6 season) 2025 08/08/2022, 07/17/2021, 12/03/2020 Influenza [...] to direct LDL (01/03/2025 9:21 AM EDT) Cholesterol 183 0 - 200 mg/dL LAB CHEMISTRY METHOD 01/03/2025 2:45 PM EDT [facility] Triglycerides 100 0 - 150 mg/dL LAB CHEMISTRY METHOD 01/03/2025 2:45 PM EDT [facility] HDL 67 >=40 mg/dL LAB CHEMISTRY METHOD 01/03/2025 2:45 PM EDT [facility] LDL Calculated 96 0 - 100 mg/dL LAB CHEMISTRY METHOD 01/03/2025 2:45 PM EDT [facility] VLDL Cholesterol Alexandru 20 mg/dL LAB CHEMISTRY METHOD 01/03/2025 2:45 PM EDT [facility] Non HDL Chol. (LDL+VLDL) 116 <145 mg/dL LAB CHEMISTRY METHOD 01/03/2025 2:45 PM EDT [facility] Chol/HDL Ratio 2.7 0.0 - 4.4 LAB CHEMISTRY METHOD 01/03/2025 2:45 PM EDT [facility] Blood Venous blood specimen / Unknown Venipuncture / Unknown 01/03/2025 9:21 AM EDT 01/03/2025 9:21 AM EDT Manolo MURRAY LAB BLOOD ORDERABLES Final Re sult [facility] [address] [place] [address], [place] [phone] * Colonoscopy (07/23/2021) [facility] Colonoscopy No Interpretation , Abstracted Anatomical Region Laterality Modality Other [facility] Provider HEALTH MAINTENANCE Final Result * Hepatitis C Screening (03/30/2021) [facility] Hepatitis C Screening Abstracted [facility] Provider HEALTH MAINTENANCE Final Result * Cervical Cancer Screening: HPV (03/18/2014) [facility] Cervical Cancer Screening: HPV Negative, Abstracted [facility] Provider HEALTH MAINTENANCE Final Result from Last 3 Months or Most Recently Relevant to Health Maintenance Insurance [facility] [employer] Care Teams Director Transition Relationship Specialty Start Date End Date Millie Castellano MD [address] [place] [phone] PCP - General Internal Medicine 11/25/21
--- OUTSIDE RECORDS SUMMARY | 2025-05-08 09:17 | XMS_ITS | Encounter Summary ---
Author Organization [employer] Address [address] [facility] 7 [place] [address] Care Team Providers Care Registered Private Duty Nurse Name Role Phone Unavailable Primary Care Provider [...]
== END 2025-05-08 09:18 | disposition home or self-care (01) ==
LOC: HO.HOS 08:49
PROVIDERS: Visit Provider Orthopaedic Surgery
DX: M17.0 Bilateral primary osteoarthritis of knee (principal)
CPT/HCPCS: 20610

== ENCOUNTER → 2025-05-08 08:48 | Outpatient (BNVA) | payer OTHER, SELFPAY | PROVIDERS: Visit Provider Orthopaedic Surgery | DX: M17.0 Bilateral primary osteoarthritis of knee (principal) | CPT/HCPCS: 20610; J2003; J7323 ==